=== PATIENT | male | born 1940 | race Caucasian/White ===

== ENCOUNTER 2017-07-26 06:20 | Day surgery (SDC) | payer MEDICARE ==
[2017-07-25 10:56] LABS: BASOPHILS % (AUTO) 0.7 % (0.0-5.0); EOSINOPHILS % (AUTO) 1.8 % (0.0-8.0); HEMATOCRIT 33.8 % (42-54); LYMPHOCYTES % (AUTO) 10.3 % (21.0-51.0); MEAN CORPUSCULAR HEMOGLOBIN 31.8 pg (27.0-33.0); MEAN CORPUSCULAR HGB CONC 34.2 g/dL (32.0-36.0); MONOCYTES % (AUTO) 5.9 % (3.0-13.0); NEUTROPHILS % (AUTO) 81.3 % (40.0-77.0); NUCLEATED RED BLOOD CELLS 0.2 % (0.0-0.19); PLATELET COUNT (AUTO) 218 K/uL (130-400); RED BLOOD CELL COUNT(AUTO) 3.63 MIL/uL (4.50-6.20); RED CELL DISTRIBUTION WIDTH 21.1 % (11.0-15.5); WHITE BLOOD COUNT (AUTO) 10.7 K/uL (4.8-10.8)
[2017-07-25 11:02] LABS: CREATININE 1.4 mg/dL (0.5-1.5); POTASSIUM 3.4 mmol/L (3.5-5.1)
[2017-07-25 11:18] VITALS: BP 134/61
[2017-07-25 11:30] LABS: INR 1.35 (0.85-1.15); PARTIAL THROMBOPLASTIN TIME 36.3 SEC (26.3-35.5); PROTHROMBIN TIME 14.1 SEC (9.6-11.6)
[~2017-07-26] VITALS: Ht 172.7 cm; Wt 129.1 kg
[~2017-07-26 06:20] MED LIST: ALBU18HF7 IH; ALBUTERAL NEB; CHOL100040 PO; DEXL60CA3 PO; DRON400T2 PO; FOLI0.4T2 PO; FURO40TA5 PO; GABA600T PO; IPRATROPIUM NASAL; LEVO75 PO; LISI2.5T2 PO; LORA10TA7 PO; METO-409 PO; MOME13HF IH; MONT10TA24 PO; PRESER VISION PO; PYRI100T2 PO; RIVA20TA PO; TRAM50TA4 PO; VITAMIN B12 PO; ZOCAR PO; [UNRECOGNIZED DRUG - CODE] PO
[2017-07-26 06:30] VITALS: BP 136/63
[2017-07-26] MEDS ORDERED: SODIUM CHLORIDE 0.9% 1000ML 1,000 ML IV ONE (06:55)
[2017-07-26] MEDS ORDERED: PROPOFOL 10 MG/ML 20ML VIAL IV ONE (07:43)
== END 2017-07-26 08:45 | disposition home or self-care (01) ==
LOC: DAH 06:20
PROVIDERS: ATTEND Internal Medicine Cardiovascular Disease
DX: I48.91 Unspecified atrial fibrillation (principal); Z53.8 Procedure and treatment not carried out for other reasons
CPT/HCPCS: 36415; 80048; 85025; 85610; 85730; 93005 ×2; A4606; J2704; J7030

== ENCOUNTER → 2017-08-07 | Outpatient (CLI) | payer MEDICARE ==
[~2017-08-07] MED LIST changes: +IPRA4AER IH; +KETO15CR2 TP; +OLOP2.5D5 OP; +SACU1TAB PO; +SIMV20TA6 PO; +[UNRECOGNIZED DRUG - OTHER] PO
== END | disposition home or self-care (01) ==
LOC: SHCH 12:25
PROVIDERS: ATTEND Internal Medicine Cardiovascular Disease
DX: R60.0 Localized edema (principal)
CPT/HCPCS: 93970

== ENCOUNTER 2017-08-09 12:22 | Inpatient (IN) | payer MEDICARE ==
[~2017-08-09] VITALS: Ht 172.7 cm; Wt 80.8 kg
[~2017-08-09 12:22] MED LIST changes: -IPRA4AER IH; -KETO15CR2 TP; -OLOP2.5D5 OP; -SACU1TAB PO; -SIMV20TA6 PO; -[UNRECOGNIZED DRUG - OTHER] PO
[2017-08-09 13:07] LABS: BASOPHILS % (AUTO) 0.9 % (0.0-5.0); EOSINOPHILS % (AUTO) 2.1 % (0.0-8.0); HEMATOCRIT 23.1 % (42-54); LYMPHOCYTES % (AUTO) 11.9 % (21.0-51.0); MEAN CORPUSCULAR HEMOGLOBIN 31.8 pg (27.0-33.0); MEAN CORPUSCULAR HGB CONC 33.7 g/dL (32.0-36.0); MEAN CORPUSCULAR VOLUME 94.3 fL (79-99); MONOCYTES % (AUTO) 6.8 % (3.0-13.0); NEUTROPHILS % (AUTO) 78.3 % (40.0-77.0); NUCLEATED RED BLOOD CELLS 0.3 % (0.0-0.19); PLATELET COUNT (AUTO) 219 K/uL (130-400); RED BLOOD CELL COUNT(AUTO) 2.45 MIL/uL (4.50-6.20); RED CELL DISTRIBUTION WIDTH 20.7 % (11.0-15.5); WHITE BLOOD COUNT (AUTO) 10.7 K/uL (4.8-10.8)
[2017-08-09 13:42] LABS: CREATININE 1.4 mg/dL (0.5-1.5); INR 1.29 (0.85-1.15); PARTIAL THROMBOPLASTIN TIME 31.7 SEC (26.3-35.5); POTASSIUM 3.5 mmol/L (3.5-5.1); PROTHROMBIN TIME 13.5 SEC (9.6-11.6)
[2017-08-09 13:47] LABS: ALBUMIN 3.2 g/dL (3.5-5.0); BILIRUBIN,TOTAL 0.8 mg/dL (0.2-1.0); TOTAL PROTEIN, SERUM 6.3 g/dL (6.0-8.3)
[2017-08-09] MEDS ORDERED: SODIUM CHLORIDE 0.9% 100 ML IV ONE (15:57)
[2017-08-09] MEDS ORDERED: SODIUM CHLORIDE 0.9% 250 ML IV ONE (16:48)
[2017-08-09] MEDS ORDERED: FUROSEMIDE 10 MG/ML 2ML VIAL ONE (19:58)
[2017-08-09 20:14] LABS: HEMATOCRIT 24.6 % (42-54)
[2017-08-09 20:50] VITALS: BP 151/79
[2017-08-09] MEDS: METOPROLOL TARTRATE 25 MG TAB PO SCH (23:00)
[2017-08-09] MEDS ORDERED: POTASSIUM CHLORIDE 10% ELIXIR 20 MEQ/15 ML UDCUP PO PRN (23:15)
[2017-08-09] MEDS ORDERED: POTASSIUM CHLORIDE 20MEQ/100ML 100 ML IV PRN (23:15)
[2017-08-09] MEDS ORDERED: ACETAMINOPHEN 325 MG TAB PO PRN ×2 (23:15)
[2017-08-09] MEDS ORDERED: LIDOCAINE HCL-MPF 1% 2ML VIAL IVP PRN (23:15)
[2017-08-09] MEDS ORDERED: ONDANSETRON HCL 4 MG/2 ML VIAL IV PRN (23:15)
[2017-08-09] MEDS ORDERED: HYDRALAZINE HCL 20 MG/ML VIAL IV PRN (23:15)
[2017-08-09] MEDS ORDERED: LISINOPRIL 2.5 MG TABLET ONE (23:29)
[2017-08-09] MEDS: LISINOPRIL 5 MG TABLET PO SCH (23:30)
[2017-08-09] MEDS ORDERED: METOPROLOL TARTRATE 25 MG TAB ONE (23:32)
[2017-08-09 23:51] VITALS: BP 133/69
[2017-08-10] MEDS ORDERED: SODIUM CHLORIDE 0.9% 100 ML IV ONE (03:05)
[2017-08-10] MEDS: PANTOPRAZOLE SODIUM 80 MG in SODIUM CHLORIDE 0.9% 100 ML IV SCH ×2 (03:48→15:44)
[2017-08-10 03:54] LABS: HEMATOCRIT 22.8 % (42-54); MEAN CORPUSCULAR HEMOGLOBIN 32.2 pg (27.0-33.0); MEAN CORPUSCULAR HGB CONC 34.7 g/dL (32.0-36.0); MEAN CORPUSCULAR VOLUME 92.7 fL (79-99); NUCLEATED RED BLOOD CELLS 0.2 % (0.0-0.19); PLATELET COUNT (AUTO) 183 K/uL (130-400); RED BLOOD CELL COUNT(AUTO) 2.46 MIL/uL (4.50-6.20); RED CELL DISTRIBUTION WIDTH 20.1 % (11.0-15.5); WHITE BLOOD COUNT (AUTO) 7.8 K/uL (4.8-10.8)
[2017-08-10 04:02] LABS: CREATININE 1.1 mg/dL (0.5-1.5); POTASSIUM 3.1 mmol/L (3.5-5.1)
[2017-08-10 04:52] VITALS: BP 119/55
[2017-08-10 07:27] LABS: APPEARANCE,URINE CLEAR (CLEAR); BILIRUBIN,URINE NEGATIVE (NEGATIVE); COLOR,URINE YELLOW (YELLOW); GLUCOSE, URINE (UA) NEGATIVE (NEGATIVE); KETONES,URINE NEGATIVE (NEGATIVE); LEUKOCYTE ESTERASE ,URINE NEGATIVE (NEGATIVE); NITRATE,URINE NEGATIVE (NEGATIVE); OCCULT BLOOD,URINE NEGATIVE (NEGATIVE); PROTEIN,URINE NEGATIVE (NEGATIVE); UROBILINOGEN,URINE 0.2 mg/dL (0.2-1.0)
[2017-08-10 08:14] VITALS: BP 138/76
[2017-08-10] MEDS ORDERED: SIMV20TA6 PO (08:36)
[2017-08-10] MEDS ORDERED: OLOP2.5D5 OP (08:36)
[2017-08-10] MEDS ORDERED: IPRA4AER IH (08:36)
[2017-08-10] MEDS ORDERED: KETO15CR2 TP (08:36)
[2017-08-10] MEDS ORDERED: PANTOPRAZOLE 40 MG/VIAL IVP SCH (09:00)
[2017-08-10] MEDS ORDERED: TRAMADOL HCL 50 MG TABLET PO SCH (10:00)
[2017-08-10] MEDS ORDERED: MAGNESIUM 2GM PREMIX 50ML 50 ML IV SCH (10:00)
[2017-08-10] MEDS: DRONEDARONE HYDROCHLORIDE 400 MG TABLET PO SCH ×3 (10:55→20:41)
[2017-08-10] MEDS: POTASSIUM CHLORIDE 20 MEQ ERTAB PO PRN ×3 (10:56→17:47)
[2017-08-10] MEDS: LISINOPRIL 5 MG TABLET PO SCH (10:58)
[2017-08-10] MEDS: METOPROLOL TARTRATE 25 MG TAB PO SCH (10:59)
[2017-08-10 12:00] VITALS: BP 146/64
[2017-08-10] MEDS: GABAPENTIN 300 MG CAPSULE PO SCH ×2 (14:23→20:41)
[2017-08-10 16:00] VITALS: BP 107/56
[2017-08-10] MEDS ORDERED: FUROSEMIDE 10 MG/ML 2ML VIAL IV SCH (17:15)
[2017-08-10] MEDS: PYRIDOXINE HCL 50 MG TABLET PO SCH (17:46)
[2017-08-10] MEDS ORDERED: **HM** TOPROL XL 100MG PO SCH (18:00)
[2017-08-10 19:44] VITALS: BP 100/46
[2017-08-10] MEDS: FUROSEMIDE 80 MG TABLET PO SCH (20:41)
[2017-08-10] MEDS: METOPROLOL TARTRATE 50 MG TAB PO SCH (20:41)
[2017-08-10] MEDS: FOLIC ACID 1 MG TABLET PO SCH (20:41)
[2017-08-10] MEDS: ATORVASTATIN CALCIUM 10 MG TABLET PO SCH (20:41)
[2017-08-10] MEDS: MONTELUKAST SODIUM 10 MG TAB PO SCH (20:41)
[2017-08-10] MEDS: DULERA IH SCH (20:46)
[2017-08-10] MEDS ORDERED: LISINOPRIL 2.5 MG TABLET PO SCH (21:00)
[2017-08-10] MEDS ORDERED: DRONEDARONE HYDROCHLORIDE 400 MG TABLET PO SCH (21:00)
[2017-08-11] VITALS (22 sets, daily range): BP systolic 91–140; BP diastolic 48–86
[2017-08-11] MEDS ORDERED: SODIUM CHLORIDE 0.9% 100 ML IV ONE (02:41)
[2017-08-11] MEDS: PANTOPRAZOLE SODIUM 80 MG in SODIUM CHLORIDE 0.9% 100 ML IV SCH (02:54)
[2017-08-11 05:04] LABS: HEMATOCRIT 25.9 % (42-54); MEAN CORPUSCULAR HEMOGLOBIN 31.3 pg (27.0-33.0); NUCLEATED RED BLOOD CELLS 0.2 % (0.0-0.19); PLATELET COUNT (AUTO) 206 K/uL (130-400); RED BLOOD CELL COUNT(AUTO) 2.82 MIL/uL (4.50-6.20); RED CELL DISTRIBUTION WIDTH 19.4 % (11.0-15.5); WHITE BLOOD COUNT (AUTO) 7.2 K/uL (4.8-10.8)
[2017-08-11 05:24] LABS: CREATININE 1.2 mg/dL (0.5-1.5); POTASSIUM 3.3 mmol/L (3.5-5.1)
[2017-08-11] MEDS ORDERED: IPRATROPIUM/ALBUTEROL SULFATE 3 ML SOLUTION IH ONE (06:08)
[2017-08-11] MEDS: LEVOTHYROXINE 75 MCG TABLET PO SCH (07:30)
[2017-08-11] MEDS ORDERED: PROPOFOL 10 MG/ML 20ML VIAL IV ONE (08:06)
[2017-08-11] MEDS: DULERA IH SCH ×2 (09:00→20:52)
[2017-08-11] MEDS: PAZEO OP SCH (09:00)
[2017-08-11] MEDS: **HM** VIT D3 1000 UNITS PO SCH (09:00)
[2017-08-11] MEDS: GABAPENTIN 300 MG CAPSULE PO SCH ×3 (10:12→20:43)
[2017-08-11] MEDS: DRONEDARONE HYDROCHLORIDE 400 MG TABLET PO SCH ×2 (10:13→20:43)
[2017-08-11] MEDS: FUROSEMIDE 80 MG TABLET PO SCH ×2 (10:13→20:44)
[2017-08-11] MEDS: ALLOPURINOL 300 MG TABLET PO SCH (10:13)
[2017-08-11] MEDS: METOPROLOL TARTRATE 50 MG TAB PO SCH ×2 (10:13→20:44)
[2017-08-11] MEDS: LORATADINE 10 MG TABLET PO SCH (10:13)
[2017-08-11] MEDS: LISINOPRIL 2.5 MG TABLET PO SCH (10:14)
[2017-08-11] MEDS: POTASSIUM CHLORIDE 20 MEQ ERTAB PO PRN ×2 (14:58→18:11)
[2017-08-11] MEDS: PANTOPRAZOLE SODIUM 40 MG TABLET.DR PO SCH (14:59)
[2017-08-11] MEDS ORDERED: PEG 3350/NA SULF,BICARB,CL/KCL 4000 ML SOLN PO SCH (17:00)
[2017-08-11] MEDS: PYRIDOXINE HCL 50 MG TABLET PO SCH (17:52)
[2017-08-11] MEDS: IPRATROPIUM 0.5 MG/2.5 ML INH IH PRN (19:03)
[2017-08-11] MEDS: MONTELUKAST SODIUM 10 MG TAB PO SCH (20:43)
[2017-08-11] MEDS: ATORVASTATIN CALCIUM 10 MG TABLET PO SCH (20:43)
[2017-08-11] MEDS: FOLIC ACID 1 MG TABLET PO SCH (20:44)
[2017-08-12] VITALS (19 sets, daily range): BP systolic 96–168; BP diastolic 46–77
[2017-08-12 06:03] LABS: HEMATOCRIT 26.3 % (42-54); MEAN CORPUSCULAR HEMOGLOBIN 32.7 pg (27.0-33.0); MEAN CORPUSCULAR HGB CONC 35.1 g/dL (32.0-36.0); MEAN CORPUSCULAR VOLUME 93.1 fL (79-99); NUCLEATED RED BLOOD CELLS 0.1 % (0.0-0.19); PLATELET COUNT (AUTO) 212 K/uL (130-400); RED BLOOD CELL COUNT(AUTO) 2.83 MIL/uL (4.50-6.20); RED CELL DISTRIBUTION WIDTH 19.4 % (11.0-15.5)
[2017-08-12 06:08] LABS: POTASSIUM 3.1 mmol/L (3.5-5.1)
[2017-08-12] MEDS: IPRATROPIUM/ALBUTEROL SULFATE 3 ML SOLUTION IH SCH (06:38)
[2017-08-12] MEDS: LEVOTHYROXINE 75 MCG TABLET PO SCH (07:30)
[2017-08-12 07:44] LABS: LYMPHOCYTES % (MANUAL) 10 % (22-44); MAN.DIFF COMMENT-IMPRESSION MANUAL DIFFERENTIAL; MONOCYTES % (MANUAL) 6 % (2-9); REACTIVE LYMPHOCYTES 4 % (0-0); SEGMENTED NEUTROPHILS % 80 % (40-70)
[2017-08-12 07:45] LABS: PLATELET MORPHOLOGY COMMENT ADEQUATE
[2017-08-12] MEDS: FUROSEMIDE 80 MG TABLET PO SCH ×2 (09:00→21:00)
[2017-08-12] MEDS: **HM** VIT D3 1000 UNITS PO SCH (09:00)
[2017-08-12] MEDS: DULERA IH SCH ×2 (09:00→21:00)
[2017-08-12] MEDS: PAZEO OP SCH (09:00)
[2017-08-12] MEDS: GABAPENTIN 300 MG CAPSULE PO SCH ×3 (09:00→22:52)
[2017-08-12] MEDS: DRONEDARONE HYDROCHLORIDE 400 MG TABLET PO SCH ×2 (09:00→22:52)
[2017-08-12] MEDS ORDERED: PROPOFOL 10 MG/ML 20ML VIAL IV ONE (09:12)
[2017-08-12] MEDS: METOPROLOL TARTRATE 50 MG TAB PO SCH ×2 (11:10→22:51)
[2017-08-12] MEDS: LORATADINE 10 MG TABLET PO SCH (13:19)
[2017-08-12] MEDS: PANTOPRAZOLE SODIUM 40 MG TABLET.DR PO SCH (13:19)
[2017-08-12] MEDS: LISINOPRIL 2.5 MG TABLET PO SCH (13:19)
[2017-08-12] MEDS: ALLOPURINOL 300 MG TABLET PO SCH (13:19)
[2017-08-12] MEDS: POTASSIUM CHLORIDE 20 MEQ ERTAB PO PRN ×2 (15:54→18:18)
[2017-08-12] MEDS: PYRIDOXINE HCL 50 MG TABLET PO SCH (16:38)
[2017-08-12] MEDS: IPRATROPIUM 0.5 MG/2.5 ML INH IH PRN (19:57)
[2017-08-12] MEDS: FOLIC ACID 1 MG TABLET PO SCH (22:52)
[2017-08-12] MEDS: MONTELUKAST SODIUM 10 MG TAB PO SCH (22:53)
[2017-08-12] MEDS: ATORVASTATIN CALCIUM 10 MG TABLET PO SCH (22:53)
[2017-08-13 04:00] VITALS: BP 115/66
[2017-08-13 05:32] LABS: HEMATOCRIT 26.4 % (42-54); MEAN CORPUSCULAR HEMOGLOBIN 30.9 pg (27.0-33.0); MEAN CORPUSCULAR HGB CONC 33.6 g/dL (32.0-36.0); NUCLEATED RED BLOOD CELLS 0.2 % (0.0-0.19); PLATELET COUNT (AUTO) 229 K/uL (130-400); RED BLOOD CELL COUNT(AUTO) 2.87 MIL/uL (4.50-6.20); WHITE BLOOD COUNT (AUTO) 6.9 K/uL (4.8-10.8)
[2017-08-13 05:39] LABS: POTASSIUM 3.6 mmol/L (3.5-5.1)
[2017-08-13] MEDS: LEVOTHYROXINE 75 MCG TABLET PO SCH (06:34)
[2017-08-13] MEDS: IPRATROPIUM/ALBUTEROL SULFATE 3 ML SOLUTION IH SCH (07:01)
[2017-08-13] MEDS: FUROSEMIDE 80 MG TABLET PO SCH ×2 (08:00→18:09)
[2017-08-13] MEDS: DRONEDARONE HYDROCHLORIDE 400 MG TABLET PO SCH ×2 (08:00→18:09)
[2017-08-13 08:17] VITALS: BP 120/58
[2017-08-13] MEDS: DULERA IH SCH (09:00)
[2017-08-13] MEDS: **HM** VIT D3 1000 UNITS PO SCH (09:00)
[2017-08-13] MEDS: PAZEO OP SCH (09:00)
[2017-08-13] MEDS ORDERED: GUAIFENESIN-DM 200/20 MG 10 ML PO PRN (09:30)
[2017-08-13] MEDS ORDERED: DIATR MEGLU/DIATRIZOATE SODIUM 30 ML BOTTLE ONE (10:31)
[2017-08-13 12:39] VITALS: BP 150/69
[2017-08-13] MEDS: METOPROLOL TARTRATE 50 MG TAB PO SCH (13:27)
[2017-08-13] MEDS: LORATADINE 10 MG TABLET PO SCH (13:28)
[2017-08-13] MEDS: PANTOPRAZOLE SODIUM 40 MG TABLET.DR PO SCH (13:28)
[2017-08-13] MEDS: LISINOPRIL 2.5 MG TABLET PO SCH (13:28)
[2017-08-13] MEDS: ALLOPURINOL 300 MG TABLET PO SCH (13:28)
[2017-08-13] MEDS: GABAPENTIN 300 MG CAPSULE PO SCH (13:29)
[2017-08-13 17:15] VITALS: BP 122/51
[2017-08-13] MEDS: PYRIDOXINE HCL 50 MG TABLET PO SCH (18:09)
== END 2017-08-13 18:58 | disposition home or self-care (01) | DRG 378 ==
LOC: EDH 12:22 → EDHIP 15:00 → 3CH 19:46
PROVIDERS: ADMIT Internal Medicine; ATTEND Internal Medicine
PROC: 30233N1 Transfusion of Nonautologous Red Blood Cells into Peripheral Vein, Percutaneous Approach (ICD-10-PCS; principal; 2017-08-09)
PROC: 0DJ08ZZ Inspection of Upper Intestinal Tract, Via Natural or Artificial Opening Endoscopic (ICD-10-PCS; 2017-08-11)
PROC: 0DBK8ZZ Excision of Ascending Colon, Via Natural or Artificial Opening Endoscopic (ICD-10-PCS; 2017-08-12)
PROC: 0DBN8ZZ Excision of Sigmoid Colon, Via Natural or Artificial Opening Endoscopic (ICD-10-PCS; 2017-08-12)
PROC: 0DBP8ZZ Excision of Rectum, Via Natural or Artificial Opening Endoscopic (ICD-10-PCS; 2017-08-12)
DX: K92.1 Melena (principal); D62 Acute posthemorrhagic anemia; D68.59 Other primary thrombophilia; E11.42 Type 2 diabetes mellitus with diabetic polyneuropathy; I50.42 Chronic combined systolic (congestive) and diastolic (congestive) heart failure; I11.0 Hypertensive heart disease with heart failure; I42.9 Cardiomyopathy, unspecified; I48.1 Persistent atrial fibrillation; I48.0 Paroxysmal atrial fibrillation; Z79.01 Long term (current) use of anticoagulants; G47.33 Obstructive sleep apnea (adult) (pediatric); Z95.810 Presence of automatic (implantable) cardiac defibrillator; M10.9 Gout, unspecified; E05.90 Thyrotoxicosis, unspecified without thyrotoxic crisis or storm; E78.5 Hyperlipidemia, unspecified; G89.29 Other chronic pain; I25.10 Atherosclerotic heart disease of native coronary artery without angina pectoris; I44.7 Left bundle-branch block, unspecified; Z96.653 Presence of artificial knee joint, bilateral; Z85.46 Personal history of malignant neoplasm of prostate; Z90.79 Acquired absence of other genital organ(s); Z88.8 Allergy status to other drugs, medicaments and biological substances; Z82.49 Family history of ischemic heart disease and other diseases of the circulatory system
CPT/HCPCS: 36415; 36430; 71046; 74250; 80048; 80053; 81003; 82150; 82270; 83690; 83735; 83880; 85014; 85018; 85025; 85027; 85610; 85730; 86850; 86900; 86901; 86922; 88305; 93005; 93970; 94640; 94664; 99291; C9113; J1940; J2704; J3475; J3480; J7030; P9016; Q9963

== ENCOUNTER → 2017-09-05 | Outpatient (CLI) | payer MEDICARE ==
[~2017-09-05] MED LIST changes: -ALBUTERAL NEB; +IPRA4AER IH; -IPRATROPIUM NASAL; +KETO15CR2 TP; +OLOP2.5D5 OP; -RIVA20TA PO; +SACU1TAB PO; +SIMV20TA6 PO; -ZOCAR PO; +[UNRECOGNIZED DRUG - OTHER] PO
== END | disposition home or self-care (01) ==
LOC: SHCH 15:00
PROVIDERS: ATTEND Internal Medicine Cardiovascular Disease
DX: I35.8 Other nonrheumatic aortic valve disorders (principal); I13.0 Hypertensive heart and chronic kidney disease with heart failure and stage 1 through stage 4 chronic kidney disease, or unspecified chronic kidney disease; E11.22 Type 2 diabetes mellitus with diabetic chronic kidney disease; N18.9 Chronic kidney disease, unspecified; I50.9 Heart failure, unspecified; E03.9 Hypothyroidism, unspecified; E78.5 Hyperlipidemia, unspecified; I25.10 Atherosclerotic heart disease of native coronary artery without angina pectoris; I48.91 Unspecified atrial fibrillation; Z79.01 Long term (current) use of anticoagulants; Z98.890 Other specified postprocedural states
CPT/HCPCS: 93306

== ENCOUNTER 2017-10-14 10:29 | Inpatient (IN) | payer MEDICARE ==
[~2017-10-14] VITALS: Ht 172.7 cm; Wt 131.5 kg
[~2017-10-14 10:29] MED LIST changes: -SACU1TAB PO; -[UNRECOGNIZED DRUG - OTHER] PO
[2017-10-14 11:12] LABS: BASOPHILS % (AUTO) 0.4 % (0.0-5.0); EOSINOPHILS % (AUTO) 1.1 % (0.0-8.0); HEMATOCRIT 31.5 % (42-54); LYMPHOCYTES % (AUTO) 11.4 % (21.0-51.0); MEAN CORPUSCULAR HEMOGLOBIN 30.3 pg (27.0-33.0); MEAN CORPUSCULAR HGB CONC 33.7 g/dL (32.0-36.0); MEAN CORPUSCULAR VOLUME 89.8 fL (79-99); MONOCYTES % (AUTO) 7.2 % (3.0-13.0); NEUTROPHILS % (AUTO) 79.9 % (40.0-77.0); NUCLEATED RED BLOOD CELLS 0.1 % (0.0-0.19); PLATELET COUNT (AUTO) 164 K/uL (130-400); RED CELL DISTRIBUTION WIDTH 20.7 % (11.0-15.5); WHITE BLOOD COUNT (AUTO) 9.3 K/uL (4.8-10.8)
[2017-10-14 11:17] LABS: ABG BASE EXCESS -3.9 mmol/L (-2.0-3.0); ABG HCO3 19.8 mmol/L (21.0-28.0); ABG OXYGEN SATURATION 97.9 % (95.0-99.0); ABG PCO2 33 mmHg (35-48)
[2017-10-14] MEDS ORDERED: ASPIRIN 325 MG TABLET ONE (11:25)
[2017-10-14 11:26] LABS: ALBUMIN 3.3 g/dL (3.5-5.0); BILIRUBIN,TOTAL 0.5 mg/dL (0.2-1.0); CREATININE 5.3 mg/dL (0.5-1.5); TOTAL PROTEIN, SERUM 5.7 g/dL (6.0-8.3)
[2017-10-14 11:33] LABS: INR 1.09 (0.85-1.15); PARTIAL THROMBOPLASTIN TIME 27.8 SEC (26.3-35.5); PROTHROMBIN TIME 11.4 SEC (9.6-11.6)
[2017-10-14 12:26] LABS: B-TYPE NATRIURETIC PEPTIDE 1450 pg/mL (0-100)
[2017-10-14 14:22] VITALS: BP 109/65
[2017-10-14] MEDS ORDERED: ONDANSETRON HCL 4 MG/2 ML VIAL IVP PRN (14:30)
[2017-10-14] MEDS ORDERED: ACETAMINOPHEN 325 MG TAB PO PRN (14:30)
[2017-10-14] MEDS ORDERED: CLONIDINE HCL 0.1 MG TABLET PO PRN (14:30)
[2017-10-14] MEDS ORDERED: LACTULOSE 20 GM/30 ML UDCUP PO PRN (14:30)
[2017-10-14] MEDS ORDERED: [UNRECOGNIZED DRUG - OTHER] PO (14:49)
[2017-10-14] MEDS ORDERED: SACU1TAB PO (14:49)
[2017-10-14 16:00] VITALS: BP 106/57
[2017-10-14 19:28] VITALS: BP 118/65
[2017-10-14] MEDS: IPRATROPIUM/ALBUTEROL SULFATE 3 ML SOLUTION IH SCH ×2 (20:35→22:46)
[2017-10-14 21:25] LABS: CREATININE 5.6 mg/dL (0.5-1.5); POTASSIUM 5.2 mmol/L (3.5-5.1)
[2017-10-14] MEDS: FUROSEMIDE 10 MG/ML 4ML VIAL IV SCH (23:34)
[2017-10-14 23:54] VITALS: BP 108/54
[2017-10-15] VITALS (7 sets, daily range): BP systolic 88–111; BP diastolic 33–96
[2017-10-15] MEDS: IPRATROPIUM/ALBUTEROL SULFATE 3 ML SOLUTION IH SCH ×4 (02:42→18:13)
[2017-10-15 03:53] LABS: HEMATOCRIT 29.8 % (42-54); MEAN CORPUSCULAR HEMOGLOBIN 31.1 pg (27.0-33.0); MEAN CORPUSCULAR HGB CONC 34.1 g/dL (32.0-36.0); MEAN CORPUSCULAR VOLUME 91.1 fL (79-99); PLATELET COUNT (AUTO) 147 K/uL (130-400); RED BLOOD CELL COUNT(AUTO) 3.27 MIL/uL (4.50-6.20); RED CELL DISTRIBUTION WIDTH 20.2 % (11.0-15.5); WHITE BLOOD COUNT (AUTO) 9.3 K/uL (4.8-10.8)
[2017-10-15 04:24] LABS: CREATININE 5.6 mg/dL (0.5-1.5); POTASSIUM 4.7 mmol/L (3.5-5.1); THYROID STIMULATING HORMONE 1.26 uIU/mL (0.36-3.74)
[2017-10-15] MEDS: FUROSEMIDE 10 MG/ML 4ML VIAL IV SCH ×3 (06:08→22:45)
[2017-10-15] MEDS ORDERED: TRAMADOL HCL 50 MG TABLET PO SCH (09:45)
[2017-10-15] MEDS ORDERED: IPRATROPIUM/ALBUTEROL SULFATE 3 ML SOLUTION IH PRN (09:45)
[2017-10-15 11:04] LABS: APPEARANCE,URINE Clear (CLEAR); BILIRUBIN,URINE Negative (NEGATIVE); COLOR,URINE Yellow (YELLOW); GLUCOSE, URINE (UA) Negative (NEGATIVE); KETONES,URINE Negative (NEGATIVE); LEUKOCYTE ESTERASE ,URINE Negative (NEGATIVE); NITRATE,URINE Negative (NEGATIVE); OCCULT BLOOD,URINE Negative (NEGATIVE); PROTEIN,URINE Trace (NEGATIVE); UROBILINOGEN,URINE 0.2 mg/dL (0.2-1.0)
[2017-10-15 11:12] LABS: CREATININE,URINE RANDOM 110 mg/dL (30-135); SODIUM,URINE RANDOM 21 mmol/l (40-220)
[2017-10-15 11:54] LABS: BACTERIA,URINE Rare /HPF (None Seen); RBC,URINE 0-1 /HPF (0-1); WBC,URINE 0-1 /HPF (0-1)
[2017-10-15] MEDS ORDERED: LEVOTHYROXINE 75 MCG TABLET PO ONE (12:00)
[2017-10-15] MEDS ORDERED: METOPROLOL TARTRATE 25 MG TAB PO ONE (12:00)
[2017-10-15] MEDS ORDERED: PANTOPRAZOLE SODIUM 40 MG TABLET.DR PO ONE (12:00)
[2017-10-15] MEDS ORDERED: DRONEDARONE HYDROCHLORIDE 400 MG TABLET PO ONE (12:00)
[2017-10-15] MEDS: GABAPENTIN 300 MG CAPSULE PO SCH ×2 (14:55→20:40)
[2017-10-15] MEDS: PYRIDOXINE HCL 50 MG TABLET PO SCH (17:00)
[2017-10-15] MEDS ORDERED: METOPROLOL TARTRATE 50 MG TAB PO SCH (18:00)
[2017-10-15] MEDS: BUDESONIDE 0.5 MG/2 ML INH IH SCH (18:26)
[2017-10-15] MEDS: FOLIC ACID 1 MG TABLET PO SCH (20:39)
[2017-10-15] MEDS: CYANOCOBALAMIN (VITAMIN B-12) 1,000 MCG TABLET PO SCH (20:40)
[2017-10-15] MEDS: MONTELUKAST SODIUM 10 MG TAB PO SCH (20:40)
[2017-10-15] MEDS: ATORVASTATIN CALCIUM 10 MG TABLET PO SCH (20:40)
[2017-10-15] MEDS: METOPROLOL TARTRATE 25 MG TAB PO SCH (21:00)
[2017-10-15] MEDS: SACUBITRIL PO SCH (21:00)
[2017-10-15] MEDS: VALSARTAN PO SCH (21:00)
[2017-10-15] MEDS: DRONEDARONE HYDROCHLORIDE 400 MG TABLET PO SCH (21:00)
[2017-10-15] MEDS: [UNRECOGNIZED DRUG - OTHER] PO SCH (21:00)
[2017-10-16] MEDS: IPRATROPIUM/ALBUTEROL SULFATE 3 ML SOLUTION IH SCH ×5 (00:21→23:11)
[2017-10-16 03:55] VITALS: BP 122/60
[2017-10-16 04:00] LABS: CREATININE 5.2 mg/dL (0.5-1.5); POTASSIUM 4.6 mmol/L (3.5-5.1)
[2017-10-16] MEDS: LEVOTHYROXINE 75 MCG TABLET PO SCH (05:45)
[2017-10-16] MEDS: FUROSEMIDE 10 MG/ML 4ML VIAL IV SCH ×3 (05:46→20:46)
[2017-10-16] MEDS: BUDESONIDE 0.5 MG/2 ML INH IH SCH ×2 (06:23→18:36)
[2017-10-16] MEDS ORDERED: LEVOTHYROXINE 75 MCG TABLET PO SCH (07:30)
[2017-10-16 07:57] VITALS: BP 150/66
[2017-10-16] MEDS: VALSARTAN PO SCH (08:41)
[2017-10-16] MEDS: SACUBITRIL PO SCH (08:41)
[2017-10-16] MEDS: GABAPENTIN 300 MG CAPSULE PO SCH ×3 (08:43→20:44)
[2017-10-16] MEDS: PANTOPRAZOLE SODIUM 40 MG TABLET.DR PO SCH (08:43)
[2017-10-16] MEDS: ALLOPURINOL 100 MG TABLET PO SCH (08:43)
[2017-10-16] MEDS: LORATADINE 10 MG TABLET PO SCH (08:43)
[2017-10-16] MEDS: METOPROLOL TARTRATE 25 MG TAB PO SCH ×2 (08:43→20:44)
[2017-10-16] MEDS: DRONEDARONE HYDROCHLORIDE 400 MG TABLET PO SCH ×2 (08:45→20:44)
[2017-10-16] MEDS: DEXLANSOPRAZOLE 60 MG PO SCH (08:45)
[2017-10-16] MEDS: CHOLECALCIFEROL 1000 UNIT PO SCH (09:00)
[2017-10-16] MEDS: OLOPATADINE HCL OP SCH (09:00)
[2017-10-16] MEDS: [UNRECOGNIZED DRUG - OTHER] PO SCH ×2 (09:00→20:52)
[2017-10-16 11:30] VITALS: BP 127/53
[2017-10-16] MEDS: PYRIDOXINE HCL 50 MG TABLET PO SCH (16:08)
[2017-10-16 16:42] VITALS: BP 148/50
[2017-10-16 19:00] VITALS: BP 127/54
[2017-10-16] MEDS: CYANOCOBALAMIN (VITAMIN B-12) 1,000 MCG TABLET PO SCH (20:44)
[2017-10-16] MEDS: FOLIC ACID 1 MG TABLET PO SCH (20:44)
[2017-10-16] MEDS: ATORVASTATIN CALCIUM 10 MG TABLET PO SCH (20:44)
[2017-10-16] MEDS: MONTELUKAST SODIUM 10 MG TAB PO SCH (20:44)
[2017-10-16 23:00] VITALS: BP 120/60
[2017-10-17 03:43] VITALS: BP 127/67
[2017-10-17 03:52] LABS: HEMATOCRIT 30.3 % (42-54); MEAN CORPUSCULAR HEMOGLOBIN 30.5 pg (27.0-33.0); MEAN CORPUSCULAR HGB CONC 33.7 g/dL (32.0-36.0); MEAN CORPUSCULAR VOLUME 90.3 fL (79-99); PLATELET COUNT (AUTO) 159 K/uL (130-400); RED BLOOD CELL COUNT(AUTO) 3.35 MIL/uL (4.50-6.20); RED CELL DISTRIBUTION WIDTH 20.6 % (11.0-15.5); WHITE BLOOD COUNT (AUTO) 7.3 K/uL (4.8-10.8)
[2017-10-17 04:18] LABS: CREATININE 4.3 mg/dL (0.5-1.5); POTASSIUM 4.3 mmol/L (3.5-5.1)
[2017-10-17] MEDS: LEVOTHYROXINE 75 MCG TABLET PO SCH (05:55)
[2017-10-17] MEDS: FUROSEMIDE 10 MG/ML 4ML VIAL IV SCH (05:58)
[2017-10-17] MEDS: IPRATROPIUM/ALBUTEROL SULFATE 3 ML SOLUTION IH SCH ×2 (06:21→11:02)
[2017-10-17] MEDS: BUDESONIDE 0.5 MG/2 ML INH IH SCH (06:21)
[2017-10-17] MEDS: LORATADINE 10 MG TABLET PO SCH (07:33)
[2017-10-17] MEDS: DRONEDARONE HYDROCHLORIDE 400 MG TABLET PO SCH (07:33)
[2017-10-17] MEDS: ALLOPURINOL 100 MG TABLET PO SCH (07:33)
[2017-10-17] MEDS: PANTOPRAZOLE SODIUM 40 MG TABLET.DR PO SCH (07:34)
[2017-10-17] MEDS: GABAPENTIN 300 MG CAPSULE PO SCH (07:34)
[2017-10-17] MEDS: METOPROLOL TARTRATE 25 MG TAB PO SCH (07:34)
[2017-10-17] MEDS: [UNRECOGNIZED DRUG - OTHER] PO SCH (07:35)
[2017-10-17] MEDS: DEXLANSOPRAZOLE 60 MG PO SCH (07:36)
[2017-10-17] MEDS: OLOPATADINE HCL OP SCH (07:37)
[2017-10-17] MEDS: CHOLECALCIFEROL 1000 UNIT PO SCH (07:37)
[2017-10-17 07:38] VITALS: BP 149/75
[2017-10-17 11:30] VITALS: BP 131/56
== END 2017-10-17 12:40 | disposition home or self-care (01) | DRG 682 ==
LOC: EDH 10:29 → 2BH 13:15 → OBSVTOIN 13:15 → 2DH 10-16 00:34
PROVIDERS: ADMIT Family Medicine; ATTEND Family Medicine
PROC: 5A09357 Assistance with Respiratory Ventilation, Less than 24 Consecutive Hours, Continuous Positive Airway Pressure (ICD-10-PCS; principal; 2017-10-14)
PROC: 5A09357 Assistance with Respiratory Ventilation, Less than 24 Consecutive Hours, Continuous Positive Airway Pressure (ICD-10-PCS; 2017-10-16)
PROC: 5A09357 Assistance with Respiratory Ventilation, Less than 24 Consecutive Hours, Continuous Positive Airway Pressure (ICD-10-PCS; 2017-10-17)
DX: N17.9 Acute kidney failure, unspecified (principal); I50.33 Acute on chronic diastolic (congestive) heart failure; I95.89 Other hypotension; E66.01 Morbid (severe) obesity due to excess calories; I42.0 Dilated cardiomyopathy; I48.0 Paroxysmal atrial fibrillation; I13.0 Hypertensive heart and chronic kidney disease with heart failure and stage 1 through stage 4 chronic kidney disease, or unspecified chronic kidney disease; Z68.41 Body mass index [BMI] 40.0-44.9, adult; J98.11 Atelectasis; N12 Tubulo-interstitial nephritis, not specified as acute or chronic; D64.9 Anemia, unspecified; M10.9 Gout, unspecified; E78.00 Pure hypercholesterolemia, unspecified; E78.5 Hyperlipidemia, unspecified; G47.33 Obstructive sleep apnea (adult) (pediatric); I25.10 Atherosclerotic heart disease of native coronary artery without angina pectoris; I48.2 Chronic atrial fibrillation; M47.9 Spondylosis, unspecified; N18.9 Chronic kidney disease, unspecified; R63.3 Feeding difficulties; G89.29 Other chronic pain; Z79.01 Long term (current) use of anticoagulants; Z95.810 Presence of automatic (implantable) cardiac defibrillator; Z85.46 Personal history of malignant neoplasm of prostate; Z90.79 Acquired absence of other genital organ(s); Z88.8 Allergy status to other drugs, medicaments and biological substances; Z82.49 Family history of ischemic heart disease and other diseases of the circulatory system
CPT/HCPCS: 36415; 36600; 71045; 71250; 76770; 80048; 80053; 81001; 82533; 82550; 82570; 82803; 83880; 83935; 84300; 84443; 84484; 85025; 85027; 85610; 85730; 86850; 86900; 86901; 93005; 94640; 94660; 94664; A4344; J1940

== ENCOUNTER 2017-11-05 09:54 | Emergency (ER) | payer MEDICARE ==
[~2017-11-05 09:54] MED LIST changes: -KETO15CR2 TP; -LISI2.5T2 PO; +[UNRECOGNIZED DRUG - OTHER] PO
[2017-11-05 10:36] LABS: BASOPHILS % (AUTO) 0.9 % (0.0-5.0); EOSINOPHILS % (AUTO) 0.7 % (0.0-8.0); HEMATOCRIT 35.2 % (42-54); LYMPHOCYTES % (AUTO) 8.5 % (21.0-51.0); MEAN CORPUSCULAR HGB CONC 33.4 g/dL (32.0-36.0); MEAN CORPUSCULAR VOLUME 89.6 fL (79-99); MONOCYTES % (AUTO) 6.8 % (3.0-13.0); NEUTROPHILS % (AUTO) 83.1 % (40.0-77.0); NUCLEATED RED BLOOD CELLS 0.1 % (0.0-0.19); PLATELET COUNT (AUTO) 197 K/uL (130-400); RED BLOOD CELL COUNT(AUTO) 3.93 MIL/uL (4.50-6.20); RED CELL DISTRIBUTION WIDTH 19.4 % (11.0-15.5); WHITE BLOOD COUNT (AUTO) 12.8 K/uL (4.8-10.8)
[2017-11-05 10:46] LABS: CREATININE 1.8 mg/dL (0.5-1.5); POTASSIUM 4.7 mmol/L (3.5-5.1)
[2017-11-05 11:08] LABS: B-TYPE NATRIURETIC PEPTIDE 964 pg/mL (0-100)
[2017-11-05 11:09] LABS: ALBUMIN 3.3 g/dL (3.5-5.0); BILIRUBIN,TOTAL 0.6 mg/dL (0.2-1.0); CREATINE KINASE MB 1.1 ng/mL (0.5-3.6); TOTAL PROTEIN, SERUM 6.3 g/dL (6.0-8.3)
[2017-11-05] MEDS ORDERED: FUROSEMIDE 10 MG/ML 4ML VIAL ONE (11:34)
== END 2017-11-05 14:18 | disposition home or self-care (01) ==
LOC: EDH 09:54
DX: I11.0 Hypertensive heart disease with heart failure (principal); I50.9 Heart failure, unspecified; E78.5 Hyperlipidemia, unspecified; I25.10 Atherosclerotic heart disease of native coronary artery without angina pectoris; Z95.810 Presence of automatic (implantable) cardiac defibrillator; Z88.1 Allergy status to other antibiotic agents; Z88.8 Allergy status to other drugs, medicaments and biological substances; Z87.891 Personal history of nicotine dependence
CPT/HCPCS: 36415; 71045; 80053; 82550; 82553; 83880; 84484; 85025; 93005; 96374; 99285; J1940

== ENCOUNTER 2018-01-16 15:16 | Inpatient (IN) | payer MEDICARE ==
[~2018-01-16] VITALS: Ht 172.7 cm; Wt 112.7 kg
[2018-01-16 15:50] LABS: BASOPHILS % (AUTO) 0.7 % (0.0-5.0); EOSINOPHILS % (AUTO) 2.2 % (0.0-8.0); HEMATOCRIT 47.5 % (42-54); LYMPHOCYTES % (AUTO) 14.1 % (21.0-51.0); MEAN CORPUSCULAR HEMOGLOBIN 32.4 pg (27.0-33.0); MEAN CORPUSCULAR HGB CONC 34.5 g/dL (32.0-36.0); MEAN CORPUSCULAR VOLUME 93.9 fL (79-99); MONOCYTES % (AUTO) 9.2 % (3.0-13.0); NEUTROPHILS % (AUTO) 73.8 % (40.0-77.0); NUCLEATED RED BLOOD CELLS 0.1 % (0.0-0.19); PLATELET COUNT (AUTO) 232 K/uL (130-400); RED BLOOD CELL COUNT(AUTO) 5.06 MIL/uL (4.50-6.20); RED CELL DISTRIBUTION WIDTH 18.8 % (11.0-15.5); WHITE BLOOD COUNT (AUTO) 14.2 K/uL (4.8-10.8)
[2018-01-16 16:05] LABS: CREATININE 2.2 mg/dL (0.5-1.5); POTASSIUM 4.8 mmol/L (3.5-5.1); TOTAL PROTEIN, SERUM 7.7 g/dL (6.0-8.3)
[2018-01-16] MEDS ORDERED: ONDANSETRON HCL 4 MG/2 ML VIAL ONE (16:22)
[2018-01-16] MEDS ORDERED: SODIUM CHLORIDE 0.9% 500ML 500 ML IV ONE (16:22)
[2018-01-16 17:12] LABS: APPEARANCE,URINE Clear (CLEAR); BILIRUBIN,URINE Negative (NEGATIVE); COLOR,URINE Yellow (YELLOW); GLUCOSE, URINE (UA) Negative (NEGATIVE); KETONES,URINE Negative (NEGATIVE); LEUKOCYTE ESTERASE ,URINE Negative (NEGATIVE); NITRATE,URINE Negative (NEGATIVE); OCCULT BLOOD,URINE Negative (NEGATIVE); PH,URINE 5.5 (5.0-8.0); PROTEIN,URINE Negative (NEGATIVE)
[2018-01-16 21:50] VITALS: BP 138/72
[2018-01-16] MEDS ORDERED: SODIUM CHLORIDE 0.9% 1000ML 1,000 ML IV SCH (23:15)
[2018-01-16 23:35] VITALS: BP 117/70
[2018-01-17 03:08] VITALS: BP 123/69
[2018-01-17 05:02] LABS: HEMATOCRIT 44.8 % (42-54); MEAN CORPUSCULAR HEMOGLOBIN 32.1 pg (27.0-33.0); MEAN CORPUSCULAR HGB CONC 34.1 g/dL (32.0-36.0); MEAN CORPUSCULAR VOLUME 93.9 fL (79-99); PLATELET COUNT (AUTO) 175 K/uL (130-400); RED BLOOD CELL COUNT(AUTO) 4.77 MIL/uL (4.50-6.20); RED CELL DISTRIBUTION WIDTH 18.5 % (11.0-15.5); WHITE BLOOD COUNT (AUTO) 13.3 K/uL (4.8-10.8)
[2018-01-17] MEDS ORDERED: ACETAMINOPHEN 325 MG TAB PO PRN ×2 (07:00)
[2018-01-17] MEDS ORDERED: SODIUM CHLORIDE 0.9% 1000ML 1,000 ML IV SCH (07:00)
[2018-01-17] MEDS ORDERED: ONDANSETRON HCL 4 MG/2 ML VIAL IVP PRN (07:00)
[2018-01-17] MEDS ORDERED: ONDANSETRON HCL MDV 20ML 2 MG/ML VIAL IVP PRN (07:00)
[2018-01-17 08:00] VITALS: BP 122/70
[2018-01-17] MEDS: ENOXAPARIN SODIUM 40 MG/0.4 ML SYRINGE SQ SCH ×4 (09:00→17:38)
[2018-01-17] MEDS: FAMOTIDINE 20MG TAB 20 MG TAB PO SCH (09:18)
[2018-01-17 11:00] VITALS: BP 141/71
[2018-01-17 16:00] VITALS: BP 153/72
[2018-01-17 20:00] VITALS: BP 133/72
[2018-01-18 00:15] VITALS: BP 131/71
[2018-01-18 04:05] VITALS: BP 131/70
[2018-01-18 04:09] LABS: HEMATOCRIT 44.4 % (42-54); MEAN CORPUSCULAR HEMOGLOBIN 31.8 pg (27.0-33.0); MEAN CORPUSCULAR HGB CONC 33.9 g/dL (32.0-36.0); MEAN CORPUSCULAR VOLUME 93.8 fL (79-99); PLATELET COUNT (AUTO) 163 K/uL (130-400); RED BLOOD CELL COUNT(AUTO) 4.74 MIL/uL (4.50-6.20); RED CELL DISTRIBUTION WIDTH 18.7 % (11.0-15.5); WHITE BLOOD COUNT (AUTO) 10.2 K/uL (4.8-10.8)
[2018-01-18 04:16] LABS: CREATININE 1.5 mg/dL (0.5-1.5); PHOSPHORUS 3.7 mg/dL (2.5-4.9); POTASSIUM 3.6 mmol/L (3.5-5.1)
[2018-01-18 04:39] LABS: BAND NEUTROPHILS % (MANUAL) 3 % (0-2); BASOPHILS % (MANUAL) 1 % (0-2); EOSINOPHILS % (MANUAL) 3 % (1-6); LYMPHOCYTES % (MANUAL) 24 % (22-44); MONOCYTES % (MANUAL) 5 % (2-9); SEGMENTED NEUTROPHILS % 64 % (40-70)
[2018-01-18 04:40] LABS: MAN.DIFF COMMENT-IMPRESSION MANUAL DIFFERENTIAL
[2018-01-18] MEDS: FAMOTIDINE 20MG TAB 20 MG TAB PO SCH (09:01)
[2018-01-18] MEDS: ENOXAPARIN SODIUM 40 MG/0.4 ML SYRINGE SQ SCH (09:02)
[2018-01-18] MEDS ORDERED: POTASSIUM CHLORIDE 20 MEQ ERTAB PO SCH (10:30)
== END 2018-01-18 12:24 | disposition home or self-care (01) | DRG 683 ==
LOC: EDH 15:16 → OBSVTOIN 18:45 → EDHIP 18:45 → 3AH 21:28
PROVIDERS: ADMIT Hospitalist; ATTEND Hospitalist
DX: N17.9 Acute kidney failure, unspecified (principal); I13.0 Hypertensive heart and chronic kidney disease with heart failure and stage 1 through stage 4 chronic kidney disease, or unspecified chronic kidney disease; E87.1 Hypo-osmolality and hyponatremia; I42.0 Dilated cardiomyopathy; E78.00 Pure hypercholesterolemia, unspecified; E78.5 Hyperlipidemia, unspecified; E86.9 Volume depletion, unspecified; G47.33 Obstructive sleep apnea (adult) (pediatric); G89.29 Other chronic pain; I25.10 Atherosclerotic heart disease of native coronary artery without angina pectoris; I48.91 Unspecified atrial fibrillation; I50.9 Heart failure, unspecified; K57.30 Diverticulosis of large intestine without perforation or abscess without bleeding; K59.00 Constipation, unspecified; K80.20 Calculus of gallbladder without cholecystitis without obstruction; M10.9 Gout, unspecified; N18.9 Chronic kidney disease, unspecified; N28.1 Cyst of kidney, acquired; Z80.0 Family history of malignant neoplasm of digestive organs; Z80.8 Family history of malignant neoplasm of other organs or systems; Z82.49 Family history of ischemic heart disease and other diseases of the circulatory system; Z85.46 Personal history of malignant neoplasm of prostate; Z87.891 Personal history of nicotine dependence; Z91.81 History of falling; Z79.899 Other long term (current) drug therapy; Z88.8 Allergy status to other drugs, medicaments and biological substances
CPT/HCPCS: 36415; 74176; 76770; 80048; 80053; 81003; 83690; 84100; 84484; 85025; 85027; 93005; 99291; J1650; J2405; J7030; J7040

== ENCOUNTER 2018-07-26 23:13 | Inpatient (IN) | payer MEDICARE ==
[~2018-07-26] VITALS: Ht 172.7 cm; Wt 112.0 kg
[~2018-07-26 23:13] MED LIST changes: -DRON400T2 PO; -OLOP2.5D5 OP; +OLOP2.5D5 OU
[2018-07-26 23:43] LABS: BASOPHILS % (AUTO) 0.3 % (0.0-5.0); EOSINOPHILS % (AUTO) 0.4 % (0.0-8.0); LYMPHOCYTES % (AUTO) 5.5 % (21.0-51.0); MEAN CORPUSCULAR HEMOGLOBIN 36.3 pg (27.0-33.0); MEAN CORPUSCULAR HGB CONC 34.1 g/dL (32.0-36.0); MEAN CORPUSCULAR VOLUME 106.6 fL (79-99); MONOCYTES % (AUTO) 7.7 % (3.0-13.0); NEUTROPHILS % (AUTO) 86.1 % (40.0-77.0); NUCLEATED RED BLOOD CELLS 0.1 % (0.0-0.19); PLATELET COUNT (AUTO) 195 K/uL (130-400); RED BLOOD CELL COUNT(AUTO) 3.38 MIL/uL (4.50-6.20); RED CELL DISTRIBUTION WIDTH 16.2 % (11.0-15.5); WHITE BLOOD COUNT (AUTO) 16.9 K/uL (4.8-10.8)
[2018-07-26 23:55] LABS: INR 1.11 (0.85-1.15); PARTIAL THROMBOPLASTIN TIME 28.1 SEC (26.3-35.5); PROTHROMBIN TIME 11.6 SEC (9.6-11.6)
[2018-07-26 23:58] LABS: CREATININE 1.6 mg/dL (0.5-1.5); POTASSIUM 4.2 mmol/L (3.5-5.1)
[2018-07-27 00:03] LABS: ALBUMIN 3.4 g/dL (3.5-5.0); BILIRUBIN,TOTAL 0.7 mg/dL (0.2-1.0); TOTAL PROTEIN, SERUM 7.1 g/dL (6.0-8.3)
[2018-07-27] MEDS ORDERED: LEVOFLOXACIN 500 MG/D5W 100 ML 100 ML ONE (00:12)
[2018-07-27] MEDS ORDERED: CEFTRIAXONE SODIUM 1 GM ONE (00:12)
[2018-07-27] MEDS ORDERED: SODIUM CHLORIDE 0.9% 1000ML 1,000 ML IV SCH (00:25)
[2018-07-27] MEDS: CEFTRIAXONE SODIUM 1 GM IV SCH ×3 (00:30→23:51)
[2018-07-27] MEDS: LEVOFLOXACIN 500 MG/D5W 100 ML 100 ML IV SCH ×3 (00:30→23:51)
[2018-07-27 00:52] LABS: B-TYPE NATRIURETIC PEPTIDE 717 pg/mL (0-100)
[2018-07-27] MEDS: FUROSEMIDE 10 MG/ML 2ML VIAL IV SCH ×4 (01:45→23:52)
[2018-07-27] MEDS ORDERED: FUROSEMIDE 10 MG/ML 2ML VIAL ONE ×2 (01:53→11:38)
[2018-07-27] MEDS: IPRATROPIUM/ALBUTEROL SULFATE 3 ML SOLUTION IH SCH ×6 (02:39→21:22)
[2018-07-27 03:22] LABS: APPEARANCE,URINE Clear (CLEAR); BILIRUBIN,URINE Negative (NEGATIVE); COLOR,URINE Yellow (YELLOW); GLUCOSE, URINE (UA) Negative (NEGATIVE); KETONES,URINE Negative (NEGATIVE); LEUKOCYTE ESTERASE ,URINE Negative (NEGATIVE); NITRATE,URINE Negative (NEGATIVE); OCCULT BLOOD,URINE Negative (NEGATIVE); PROTEIN,URINE Negative (NEGATIVE)
[2018-07-27] MEDS ORDERED: SODIUM CHLORIDE 3% FOR INHALATION 4 ML/AMP VIAL.NEB IH ONE (03:24)
[2018-07-27 05:31] LABS: CREATININE 1.2 mg/dL (0.5-1.5); POTASSIUM 3.1 mmol/L (3.5-5.1)
[2018-07-27] MEDS: METHYLPREDNISOLONE SOD SUCC 125MG/2ML VIAL IV SCH ×5 (06:30→23:52)
[2018-07-27 07:12] LABS: BASOPHILS % (AUTO) 0.3 % (0.0-5.0); EOSINOPHILS % (AUTO) 0.4 % (0.0-8.0); HEMATOCRIT 37.3 % (42-54); LYMPHOCYTES % (AUTO) 7.8 % (21.0-51.0); MEAN CORPUSCULAR HEMOGLOBIN 35.9 pg (27.0-33.0); MEAN CORPUSCULAR HGB CONC 33.9 g/dL (32.0-36.0); MEAN CORPUSCULAR VOLUME 106.2 fL (79-99); MONOCYTES % (AUTO) 6.7 % (3.0-13.0); NEUTROPHILS % (AUTO) 84.8 % (40.0-77.0); NUCLEATED RED BLOOD CELLS 0.1 % (0.0-0.19); PLATELET COUNT (AUTO) 181 K/uL (130-400); RED BLOOD CELL COUNT(AUTO) 3.52 MIL/uL (4.50-6.20); RED CELL DISTRIBUTION WIDTH 16.4 % (11.0-15.5); WHITE BLOOD COUNT (AUTO) 16.5 K/uL (4.8-10.8)
[2018-07-27] MEDS: PANTOPRAZOLE SODIUM 40 MG TABLET.DR PO SCH (09:00)
[2018-07-27] MEDS: ENOXAPARIN SODIUM 40 MG/0.4 ML SYRINGE SQ SCH (09:00)
[2018-07-27] MEDS ORDERED: METHYLPREDNISOLONE SOD SUCC 125MG/2ML VIAL ONE ×2 (09:59→16:05)
[2018-07-27] MEDS ORDERED: ENOXAPARIN SODIUM 40 MG/0.4 ML SYRINGE SQ ONE (10:00)
[2018-07-27] MEDS ORDERED: IPRATROPIUM/ALBUTEROL SULFATE 3 ML SOLUTION IH ONE ×4 (10:17→21:14)
[2018-07-27] MEDS ORDERED: PANTOPRAZOLE SODIUM 40 MG TABLET.DR PO ONE (11:38)
[2018-07-27] MEDS ORDERED: POTASSIUM CHLORIDE 10% ELIXIR 20 MEQ/15 ML UDCUP PO PRN (12:00)
[2018-07-27] MEDS ORDERED: POTASSIUM CHLORIDE 20MEQ/100ML 100 ML IV PRN (12:00)
[2018-07-27] MEDS ORDERED: LIDOCAINE HCL-MPF 1% 2ML VIAL IVP PRN (12:00)
[2018-07-27] MEDS ORDERED: POTASSIUM CHLORIDE 20 MEQ ERTAB PO PRN (12:00)
[2018-07-27] MEDS ORDERED: POTASSIUM CHLORIDE 20 MEQ ERTAB PO ONE ×3 (12:29→16:04)
[2018-07-27] MEDS ORDERED: GUAIFENESIN-DM 200/20 MG 10 ML PO PRN (13:00)
[2018-07-27] MEDS ORDERED: GUAIFENESIN-DM 200/20 MG 10 ML ONE (17:17)
[2018-07-27] MEDS ORDERED: METHYLPREDNISOLONE SOD SUCC 40MG/ML 1ML ONE (22:55)
[2018-07-27 23:10] VITALS: BP 127/57
[2018-07-27] MEDS: METOPROLOL TARTRATE 50 MG TAB PO SCH (23:39)
[2018-07-27] MEDS: TRAMADOL HCL 50 MG TABLET PO SCH (23:40)
[2018-07-27] MEDS: SIMVASTATIN 20 MG TABLET PO SCH (23:40)
[2018-07-27] MEDS: GABAPENTIN 300 MG CAPSULE PO SCH (23:40)
[2018-07-28] MEDS ORDERED: AMIO200T5 PO (00:04)
[2018-07-28] MEDS ORDERED: SPIR25TA PO (00:04)
[2018-07-28] MEDS ORDERED: METO2.5T2 PO (00:04)
[2018-07-28] MEDS: IPRATROPIUM/ALBUTEROL SULFATE 3 ML SOLUTION IH SCH ×6 (02:27→21:39)
[2018-07-28 03:34] VITALS: BP 126/66
[2018-07-28] MEDS: LEVOTHYROXINE 75 MCG TABLET PO SCH (06:30)
[2018-07-28] MEDS: METHYLPREDNISOLONE SOD SUCC 125MG/2ML VIAL IV SCH ×3 (06:30→18:27)
[2018-07-28 06:42] LABS: BASOPHILS % (AUTO) 0.1 % (0.0-5.0); HEMATOCRIT 34.4 % (42-54); LYMPHOCYTES % (AUTO) 3.5 % (21.0-51.0); MEAN CORPUSCULAR HEMOGLOBIN 36.2 pg (27.0-33.0); MEAN CORPUSCULAR VOLUME 106.3 fL (79-99); MONOCYTES % (AUTO) 1.5 % (3.0-13.0); NEUTROPHILS % (AUTO) 94.9 % (40.0-77.0); PLATELET COUNT (AUTO) 181 K/uL (130-400); RED BLOOD CELL COUNT(AUTO) 3.24 MIL/uL (4.50-6.20); RED CELL DISTRIBUTION WIDTH 16.1 % (11.0-15.5); WHITE BLOOD COUNT (AUTO) 13.5 K/uL (4.8-10.8)
[2018-07-28 07:11] LABS: CREATININE 1.5 mg/dL (0.5-1.5); POTASSIUM 5.3 mmol/L (3.5-5.1)
[2018-07-28 08:00] VITALS: BP 133/69
[2018-07-28] MEDS: FUROSEMIDE 10 MG/ML 2ML VIAL IV SCH ×2 (09:24→18:27)
[2018-07-28] MEDS: TRAMADOL HCL 50 MG TABLET PO SCH ×3 (09:26→21:56)
[2018-07-28] MEDS: METOPROLOL TARTRATE 50 MG TAB PO SCH ×2 (09:26→21:57)
[2018-07-28] MEDS: SPIRONOLACTONE 25 MG TAB PO SCH (09:27)
[2018-07-28] MEDS: METOLAZONE 2.5 MG TABLET PO SCH (09:27)
[2018-07-28] MEDS: GABAPENTIN 300 MG CAPSULE PO SCH ×3 (09:27→21:56)
[2018-07-28] MEDS: AMIODARONE HCL 200 MG TABLET PO SCH (09:27)
[2018-07-28] MEDS: PANTOPRAZOLE SODIUM 40 MG TABLET.DR PO SCH (09:27)
[2018-07-28] MEDS: ALLOPURINOL 300 MG TABLET PO SCH (09:28)
[2018-07-28] MEDS: ENOXAPARIN SODIUM 40 MG/0.4 ML SYRINGE SQ SCH (09:29)
[2018-07-28 12:00] VITALS: BP 132/69
[2018-07-28 16:00] VITALS: BP 133/69
--- NOTE | 2018-07-28 16:15 | NUR ---
JU PT SEEN W SPOUSE AT BEDSIDE, AAOX 3 ENG SPKG IND OF ADLS AND DRIVES HOWEVER PTSTATES HAS MOBILITY ISSUES- SEVERAL SCOOTERS, WHEELCHAIR, ROLLING WALKER; NO OXYGEN NO , PROVIDER SERVICES; CM TO FOLLOW Addendum: 07/28/18 at 1810 by HETAL MCNEIL RN CM Amended: Links added.
[2018-07-28 19:40] VITALS: BP 126/63
[2018-07-28] MEDS: SIMVASTATIN 20 MG TABLET PO SCH (21:56)
[2018-07-29] VITALS (7 sets, daily range): BP systolic 115–133; BP diastolic 52–71
[2018-07-29] MEDS: LEVOFLOXACIN 500 MG/D5W 100 ML 100 ML IV SCH (01:30)
[2018-07-29] MEDS: CEFTRIAXONE SODIUM 1 GM IV SCH (01:30)
[2018-07-29] MEDS: METHYLPREDNISOLONE SOD SUCC 125MG/2ML VIAL IV SCH ×2 (01:30→06:30)
[2018-07-29] MEDS: IPRATROPIUM/ALBUTEROL SULFATE 3 ML SOLUTION IH SCH ×6 (01:54→21:40)
[2018-07-29 04:43] LABS: BASOPHILS % (AUTO) 0.1 % (0.0-5.0); HEMATOCRIT 35.9 % (42-54); LYMPHOCYTES % (AUTO) 3.6 % (21.0-51.0); MEAN CORPUSCULAR HEMOGLOBIN 36.3 pg (27.0-33.0); MEAN CORPUSCULAR HGB CONC 34.2 g/dL (32.0-36.0); MEAN CORPUSCULAR VOLUME 106.1 fL (79-99); NEUTROPHILS % (AUTO) 94.3 % (40.0-77.0); NUCLEATED RED BLOOD CELLS 0.2 % (0.0-0.19); PLATELET COUNT (AUTO) 181 K/uL (130-400); RED BLOOD CELL COUNT(AUTO) 3.38 MIL/uL (4.50-6.20); RED CELL DISTRIBUTION WIDTH 15.9 % (11.0-15.5); WHITE BLOOD COUNT (AUTO) 15.6 K/uL (4.8-10.8)
[2018-07-29 04:59] LABS: CREATININE 1.8 mg/dL (0.5-1.5); POTASSIUM 4.3 mmol/L (3.5-5.1)
[2018-07-29] MEDS: LEVOTHYROXINE 75 MCG TABLET PO SCH (06:30)
[2018-07-29] MEDS: ALLOPURINOL 300 MG TABLET PO SCH (09:16)
[2018-07-29] MEDS: TRAMADOL HCL 50 MG TABLET PO SCH ×3 (09:17→20:18)
[2018-07-29] MEDS: SPIRONOLACTONE 25 MG TAB PO SCH (09:17)
[2018-07-29] MEDS: METOPROLOL TARTRATE 50 MG TAB PO SCH ×3 (09:18→20:18)
[2018-07-29] MEDS: PANTOPRAZOLE SODIUM 40 MG TABLET.DR PO SCH (09:19)
[2018-07-29] MEDS: GABAPENTIN 300 MG CAPSULE PO SCH ×3 (09:19→20:18)
[2018-07-29] MEDS: AMIODARONE HCL 200 MG TABLET PO SCH (09:19)
[2018-07-29] MEDS: FUROSEMIDE 10 MG/ML 2ML VIAL IV SCH (09:20)
[2018-07-29] MEDS: ENOXAPARIN SODIUM 40 MG/0.4 ML SYRINGE SQ SCH (09:21)
[2018-07-29] MEDS: FUROSEMIDE 20 MG TABLET PO SCH ×2 (15:45→20:28)
[2018-07-29 17:59] LABS: MEAN CORPUSCULAR HGB CONC 33.6 g/dL (32.0-36.0); MEAN CORPUSCULAR VOLUME 107.2 fL (79-99); NUCLEATED RED BLOOD CELLS 0.3 % (0.0-0.19); PLATELET COUNT (AUTO) 207 K/uL (130-400); RED BLOOD CELL COUNT(AUTO) 3.73 MIL/uL (4.50-6.20); WHITE BLOOD COUNT (AUTO) 17.1 K/uL (4.8-10.8)
[2018-07-29] MEDS: SIMVASTATIN 20 MG TABLET PO SCH (20:17)
[2018-07-30] MEDS: IPRATROPIUM/ALBUTEROL SULFATE 3 ML SOLUTION IH SCH ×3 (01:36→09:57)
[2018-07-30 04:15] VITALS: BP 130/63
[2018-07-30 05:07] LABS: POTASSIUM 3.7 mmol/L (3.5-5.1)
[2018-07-30 05:13] LABS: HEMATOCRIT 36.7 % (42-54); MEAN CORPUSCULAR HEMOGLOBIN 35.8 pg (27.0-33.0); MEAN CORPUSCULAR HGB CONC 33.9 g/dL (32.0-36.0); MEAN CORPUSCULAR VOLUME 105.6 fL (79-99); NUCLEATED RED BLOOD CELLS 0.2 % (0.0-0.19); PLATELET COUNT (AUTO) 183 K/uL (130-400); RED BLOOD CELL COUNT(AUTO) 3.48 MIL/uL (4.50-6.20); RED CELL DISTRIBUTION WIDTH 15.3 % (11.0-15.5); WHITE BLOOD COUNT (AUTO) 14.2 K/uL (4.8-10.8)
[2018-07-30 05:14] LABS: CREATININE 1.7 mg/dL (0.5-1.5)
[2018-07-30] MEDS: LEVOTHYROXINE 75 MCG TABLET PO SCH (06:28)
[2018-07-30 08:00] VITALS: BP 136/85
[2018-07-30] MEDS ORDERED: PREDNISONE 20 MG TABLET PO SCH (09:00)
[2018-07-30] MEDS: ENOXAPARIN SODIUM 40 MG/0.4 ML SYRINGE SQ SCH (09:00)
[2018-07-30] MEDS ORDERED: LEVOFLOXACIN 500 MG TABLET PO SCH (09:00)
[2018-07-30] MEDS ORDERED: GABAPENTIN 300 MG CAPSULE PO SCH (09:00)
[2018-07-30] MEDS ORDERED: FUROSEMIDE 20 MG TABLET PO SCH (09:00)
[2018-07-30] MEDS: METOPROLOL TARTRATE 50 MG TAB PO SCH (09:09)
[2018-07-30] MEDS: ALLOPURINOL 300 MG TABLET PO SCH (09:10)
[2018-07-30] MEDS: METOLAZONE 2.5 MG TABLET PO SCH (09:11)
[2018-07-30] MEDS: SPIRONOLACTONE 25 MG TAB PO SCH (09:11)
[2018-07-30] MEDS: PANTOPRAZOLE SODIUM 40 MG TABLET.DR PO SCH (09:12)
[2018-07-30] MEDS: TRAMADOL HCL 50 MG TABLET PO SCH (09:12)
[2018-07-30] MEDS: AMIODARONE HCL 200 MG TABLET PO SCH (09:12)
[2018-07-30] MEDS ORDERED: LEVO500T89 PO (10:29)
[2018-07-30] MEDS ORDERED: BENZ-17 PO (10:34)
--- NOTE | 2018-07-30 11:55 | NUR ---
DISCHARGE DISCHARGE TEACHING PROVIDED TO PATIENT, RX TEACHING PROVIDED TO PATIENT. INFORMED PATIENT OF SCHEDULED F/U WITH DR. ZUNIGA. PATIENT VERBALIZED UNDERSTANDING OF DISCHARGE TEACHING. REMOVED 20GIV FROM LEFT AC, CATHETER INTACT. PATIENT IS IN NO APPARENT DISTRESS AND REPORTS NO DISCOMFORTS. PATIENT AWAITING FOR TO PICK HIM UP.
[2018-08-05] MEDS ORDERED: TRAM50TA4 PO (00:44)
== END 2018-07-30 12:25 | disposition home or self-care (01) | DRG 193 ==
LOC: EDH 23:13 → EDHIP 07-27 00:25 → 4BH 07-27 20:37
PROVIDERS: ADMIT Hospitalist; ATTEND Hospitalist
DX: J18.9 Pneumonia, unspecified organism (principal); I50.31 Acute diastolic (congestive) heart failure; E87.1 Hypo-osmolality and hyponatremia; I13.0 Hypertensive heart and chronic kidney disease with heart failure and stage 1 through stage 4 chronic kidney disease, or unspecified chronic kidney disease; I42.9 Cardiomyopathy, unspecified; N17.9 Acute kidney failure, unspecified; N18.9 Chronic kidney disease, unspecified; E87.5 Hyperkalemia; E78.5 Hyperlipidemia, unspecified; G47.33 Obstructive sleep apnea (adult) (pediatric); G89.29 Other chronic pain; M54.9 Dorsalgia, unspecified; T38.0X5A Adverse effect of glucocorticoids and synthetic analogues, initial encounter; I48.91 Unspecified atrial fibrillation; Z80.0 Family history of malignant neoplasm of digestive organs; Z80.8 Family history of malignant neoplasm of other organs or systems; Z82.49 Family history of ischemic heart disease and other diseases of the circulatory system; Z83.3 Family history of diabetes mellitus; Z85.46 Personal history of malignant neoplasm of prostate; Z87.891 Personal history of nicotine dependence; Z95.810 Presence of automatic (implantable) cardiac defibrillator; Z88.8 Allergy status to other drugs, medicaments and biological substances; Y92.89 Other specified places as the place of occurrence of the external cause
CPT/HCPCS: 36415; 71045; 80048; 80053; 81003; 83605; 83880; 84132; 84484; 85025; 85027; 85610; 85730; 87040; 87071; 87205; 87804; 93005; 94640; 94664; G0378; J0696; J1650; J1940; J1956; J2920; J2930

== ENCOUNTER 2018-08-04 11:42 | Inpatient (IN) | payer MEDICARE | END 2018-08-08 18:45 | LOC: EDH 11:42 → EDHIP 14:36 → 3AH 22:29 | DX: N17.9 Acute kidney failure, unspecified (principal); I13.0 Hypertensive heart and chronic kidney disease with heart failure and stage 1 through stage 4 chronic kidney disease, or unspecified chronic kidney disease; M86.9 Osteomyelitis, unspecified; D72.829 Elevated white blood cell count, unspecified; R53.1 Weakness; Z88.1 Allergy status to other antibiotic agents; L27.0 Generalized skin eruption due to drugs and medicaments taken internally; T36.8X5A Adverse effect of other systemic antibiotics, initial encounter; K21.9 Gastro-esophageal reflux disease without esophagitis; N18.9 Chronic kidney disease, unspecified; R53.81 Other malaise; C43.9 Malignant melanoma of skin, unspecified; Z96.653 Presence of artificial knee joint, bilateral ==

== ENCOUNTER 2018-10-04 20:00 | Inpatient (IN) | payer MEDICARE ==
[~2018-10-04] VITALS: Ht 172.7 cm; Wt 61.0 kg
[~2018-10-04 20:00] MED LIST changes: +AMIO200T5 PO; +BENZ-17 PO; -CHOL100040 PO; -FOLI0.4T2 PO; +LEVO500T89 PO; +METO2.5T2 PO; -OLOP2.5D5 OU; +SPIR25TA PO
[2018-10-04] MEDS ORDERED: MORPHINE SULFATE 4 MG/1ML SYG ONE (20:48)
[2018-10-04 20:50] LABS: BASOPHILS % (AUTO) 0.7 % (0.0-5.0); EOSINOPHILS % (AUTO) 0.9 % (0.0-8.0); HEMATOCRIT 29.8 % (42-54); LYMPHOCYTES % (AUTO) 8.4 % (21.0-51.0); MEAN CORPUSCULAR HEMOGLOBIN 34.7 pg (27.0-33.0); MEAN CORPUSCULAR VOLUME 102.1 fL (79-99); MONOCYTES % (AUTO) 7.3 % (3.0-13.0); NEUTROPHILS % (AUTO) 82.7 % (40.0-77.0); NUCLEATED RED BLOOD CELLS 0.1 % (0.0-0.19); PLATELET COUNT (AUTO) 252 K/uL (130-400); RED BLOOD CELL COUNT(AUTO) 2.92 MIL/uL (4.50-6.20); RED CELL DISTRIBUTION WIDTH 18.5 % (11.0-15.5); WHITE BLOOD COUNT (AUTO) 11.5 K/uL (4.8-10.8)
[2018-10-04 21:03] LABS: CREATININE 1.5 mg/dL (0.5-1.5); POTASSIUM 3.9 mmol/L (3.5-5.1)
[2018-10-04 21:07] LABS: BILIRUBIN,TOTAL 0.7 mg/dL (0.2-1.0); MAGNESIUM 0.7 mg/dL (1.80-2.40); TOTAL PROTEIN, SERUM 6.7 g/dL (6.0-8.3)
[2018-10-04 21:16] LABS: INR 1.09 (0.85-1.15); PARTIAL THROMBOPLASTIN TIME 35.7 SEC (26.3-35.5); PROTHROMBIN TIME 11.4 SEC (9.6-11.6)
[2018-10-04 22:15] LABS: APPEARANCE,URINE Clear (CLEAR); BILIRUBIN,URINE Negative (NEGATIVE); COLOR,URINE Yellow (YELLOW); GLUCOSE, URINE (UA) Negative (NEGATIVE); KETONES,URINE Negative (NEGATIVE); LEUKOCYTE ESTERASE ,URINE Negative (NEGATIVE); NITRATE,URINE Negative (NEGATIVE); OCCULT BLOOD,URINE Negative (NEGATIVE); PROTEIN,URINE Negative (NEGATIVE)
[2018-10-05] VITALS (8 sets, daily range): BP systolic 108–131; BP diastolic 47–61
[2018-10-05] MEDS ORDERED: LACTULOSE 20 GM/30 ML UDCUP PO PRN
[2018-10-05] MEDS ORDERED: ONDANSETRON HCL 4 MG/2 ML VIAL IV PRN
[2018-10-05] MEDS ORDERED: ACETAMINOPHEN 325 MG TAB PO PRN
[2018-10-05] MEDS ORDERED: MAGNESIUM 2GM PREMIX 50ML 50 ML IV ONE (00:14)
[2018-10-05] MEDS ORDERED: MAGNESIUM 2GM PREMIX 50ML 50 ML IV PRN (00:30)
[2018-10-05] MEDS ORDERED: ALLO100T PO (01:07)
[2018-10-05] MEDS ORDERED: FOLI0.8C PO (01:24)
[2018-10-05] MEDS ORDERED: OLOP2.5D5 OP (01:24)
[2018-10-05 04:18] LABS: BASOPHILS % (AUTO) 0.6 % (0.0-5.0); EOSINOPHILS % (AUTO) 1.2 % (0.0-8.0); HEMATOCRIT 28.3 % (42-54); LYMPHOCYTES % (AUTO) 11.2 % (21.0-51.0); MEAN CORPUSCULAR HGB CONC 35.4 g/dL (32.0-36.0); MEAN CORPUSCULAR VOLUME 101.7 fL (79-99); MONOCYTES % (AUTO) 6.9 % (3.0-13.0); NEUTROPHILS % (AUTO) 80.1 % (40.0-77.0); NUCLEATED RED BLOOD CELLS 0.1 % (0.0-0.19); PLATELET COUNT (AUTO) 222 K/uL (130-400); RED BLOOD CELL COUNT(AUTO) 2.78 MIL/uL (4.50-6.20); RED CELL DISTRIBUTION WIDTH 18.1 % (11.0-15.5); WHITE BLOOD COUNT (AUTO) 10.5 K/uL (4.8-10.8)
[2018-10-05 04:21] LABS: CREATININE 1.4 mg/dL (0.5-1.5); POTASSIUM 3.6 mmol/L (3.5-5.1)
[2018-10-05] MEDS ORDERED: POTASSIUM CHLORIDE 10% ELIXIR 20 MEQ/15 ML UDCUP PO PRN (05:15)
[2018-10-05] MEDS ORDERED: POTASSIUM CHLORIDE 20 MEQ ERTAB PO PRN (05:15)
[2018-10-05] MEDS ORDERED: POTASSIUM CHLORIDE 20MEQ/100ML 100 ML IV PRN (05:15)
[2018-10-05] MEDS ORDERED: LEVOTHYROXINE 75 MCG TABLET PO SCH (07:30)
--- NOTE | 2018-10-05 08:00 | NUR ---
ASSESSMENT ENCOUNTERED PT IN SEMI PALACIOS'S POSITION, A&OX3, CALM COOPERATIVE BUT DOES HAVE INTERMITTENT EPISODES OF DISCOMFORT TO LOWER EXTREMITIES R > L. BUT DENIES DIZZINESS OR LIGHTHEADEDNESS. PT STATES HE HAS BEEN UNABLE TO AMBULATE DUE TO LOWER EXTREMITY WEAKNESS. PT IS ABLE TO TOLERATE FOODS AND FLUIDS WITH NO THROAT CLEARING OR COUGH. CALL LIGHT WITHIN REACH, FAMILY AT BEDSIDE.
[2018-10-05] MEDS ORDERED: FAMOTIDINE 20MG TAB 20 MG TAB PO SCH (09:00)
[2018-10-05] MEDS: **HM** DEXILANT 60MG PO SCH (09:00)
[2018-10-05] MEDS: PAZEO EYE OP SCH (09:00)
[2018-10-05] MEDS ORDERED: GABAPENTIN 300 MG CAPSULE PO SCH (09:00)
[2018-10-05] MEDS: SODIUM CHLORIDE 0.9% 1000ML 1,000 ML IV SCH ×3 (10:00→20:00)
[2018-10-05] MEDS ORDERED: TRAMADOL HCL 50 MG TABLET ONE (10:01)
[2018-10-05 10:28] LABS: CREATININE 1.4 mg/dL (0.5-1.5); MAGNESIUM 2.9 mg/dL (1.80-2.40); POTASSIUM 3.4 mmol/L (3.5-5.1)
[2018-10-05] MEDS: LORATADINE 10 MG TABLET PO SCH (10:28)
[2018-10-05] MEDS: FOLIC ACID 1 MG TABLET PO SCH (10:29)
[2018-10-05] MEDS: ALLOPURINOL 100 MG TABLET PO SCH ×2 (10:29→22:09)
[2018-10-05] MEDS: METOLAZONE 2.5 MG TABLET PO SCH (10:29)
[2018-10-05] MEDS: AMIODARONE HCL 200 MG TABLET PO SCH (10:29)
[2018-10-05] MEDS: SPIRONOLACTONE 25 MG TAB PO SCH ×2 (10:30→22:09)
[2018-10-05] MEDS: FUROSEMIDE 40 MG TABLET PO SCH ×2 (10:30→22:12)
[2018-10-05] MEDS: ENOXAPARIN SODIUM 40 MG/0.4 ML SYRINGE SQ SCH (10:31)
[2018-10-05] MEDS: METOPROLOL TARTRATE 50 MG TAB PO SCH ×2 (10:31→21:00)
[2018-10-05] MEDS: TRAMADOL HCL 50 MG TABLET PO SCH (12:00)
[2018-10-05] MEDS: GABAPENTIN 300 MG CAPSULE PO SCH ×2 (14:34→22:09)
[2018-10-05] MEDS: PREGABALIN 75 MG CAPSULE PO SCH ×2 (14:34→22:10)
--- NOTE | 2018-10-05 16:30 | NUR ---
DR STAHL UPDATED ORDERS RECEIVED
--- NOTE | 2018-10-05 16:54 | NUR ---
cm note met with patient and . pt resides with spouse at home. pt was ambulatory until recently progressively worsened, unable to ambulate. pt has a w/c and walkers at home also a cpap machine in place. assists with all care, and also uses an [facility] for md visits. pt and state dc plan will probably be to a rehab in [facility]. have discussed with dr Vasquez, and daughter, and will decide when closer to dc. Addendum: 10/05/18 at 1657 by GARY RIVERA CM Amended: Links added.
[2018-10-05] MEDS ORDERED: PREGABALIN 75 MG CAPSULE PO SCH (21:00)
[2018-10-05] MEDS: SIMVASTATIN 20 MG TABLET PO SCH (22:09)
[2018-10-05] MEDS: MONTELUKAST SODIUM 10 MG TAB PO SCH (22:09)
[2018-10-05] MEDS: CYANOCOBALAMIN (VITAMIN B-12) 1,000 MCG TABLET PO SCH (22:09)
[2018-10-06] VITALS (12 sets, daily range): BP systolic 102–125; BP diastolic 51–64
[2018-10-06 04:06] LABS: HEMATOCRIT 29.1 % (42-54); MEAN CORPUSCULAR HEMOGLOBIN 34.6 pg (27.0-33.0); MEAN CORPUSCULAR VOLUME 101.8 fL (79-99); PLATELET COUNT (AUTO) 256 K/uL (130-400); RED BLOOD CELL COUNT(AUTO) 2.86 MIL/uL (4.50-6.20); RED CELL DISTRIBUTION WIDTH 18.4 % (11.0-15.5); WHITE BLOOD COUNT (AUTO) 11.6 K/uL (4.8-10.8)
[2018-10-06 04:14] LABS: CREATININE 1.3 mg/dL (0.5-1.5)
[2018-10-06] MEDS: SODIUM CHLORIDE 0.9% 1000ML 1,000 ML IV SCH ×2 (06:00→16:00)
[2018-10-06] MEDS: LEVOTHYROXINE 75 MCG TABLET PO SCH (06:01)
[2018-10-06] MEDS: PAZEO EYE OP SCH (09:00)
[2018-10-06] MEDS: **HM** DEXILANT 60MG PO SCH (09:00)
[2018-10-06] MEDS: FOLIC ACID 1 MG TABLET PO SCH (09:11)
[2018-10-06] MEDS: AMIODARONE HCL 200 MG TABLET PO SCH (09:11)
[2018-10-06] MEDS: SPIRONOLACTONE 25 MG TAB PO SCH ×2 (09:11→20:20)
[2018-10-06] MEDS: PREGABALIN 75 MG CAPSULE PO SCH ×2 (09:11→20:20)
[2018-10-06] MEDS: FUROSEMIDE 40 MG TABLET PO SCH ×2 (09:11→20:19)
[2018-10-06] MEDS: METOLAZONE 2.5 MG TABLET PO SCH (09:11)
[2018-10-06] MEDS: GABAPENTIN 300 MG CAPSULE PO SCH ×3 (09:11→20:20)
[2018-10-06] MEDS: LORATADINE 10 MG TABLET PO SCH (09:11)
[2018-10-06] MEDS: ENOXAPARIN SODIUM 40 MG/0.4 ML SYRINGE SQ SCH (09:12)
[2018-10-06] MEDS: METOPROLOL TARTRATE 50 MG TAB PO SCH ×2 (09:12→21:00)
[2018-10-06] MEDS: ALLOPURINOL 100 MG TABLET PO SCH ×2 (09:12→20:20)
[2018-10-06] MEDS ORDERED: IOPAMIDOL 10 ML VIAL ONE ×2 (11:30→11:35)
--- NOTE | 2018-10-06 11:52 | NUR ---
CT LUMBAR MYELOGRAM PROCEDURE PERFORMED BY DR Lydia ROBERTO. PUNCTURE SITE LOWER BACK. PATIENT TOLERATED PROCEDURE WELL. CONTRAST INJECTION OF ISOVUE 200MG/20ML GIVEN AT 1145. END OF PROCEDURE AT 1150. SPINAL NEEDLE REMOVED AND BAND AID APPLIED WITH NO BLEEDING NOTED. REPORT GIVEN TO Erin EVANGELISTA RN AND PATIENT TRANSPORTED TO [facility] VIA BED AT 1155 VIA BED. AAO X3 WITH NO C/O PAIN.
[2018-10-06] MEDS: TRAMADOL HCL 50 MG TABLET PO SCH (12:26)
--- NOTE | 2018-10-06 19:30 | NUR ---
DR. STAHL CAME IN TO SEE PT AND SEE CT RESULTS. DISCUSSED RESULTS WITH FAMILY. STATED PENDING FOR DR. CASIANO AND HIM TO DISCUSS PLAN OF CARE AND DECIDE WHO WILL DO LAMINECTOMY THAT PT REQUIRES DUE TO ABNORMAL RESULTS. NEW ORDER FOR CARDIOLOGY CONSULT TO CLEAR FOR PROCEDURE.
[2018-10-06] MEDS: SIMVASTATIN 20 MG TABLET PO SCH (20:19)
[2018-10-06] MEDS: MONTELUKAST SODIUM 10 MG TAB PO SCH (20:19)
[2018-10-06] MEDS: CYANOCOBALAMIN (VITAMIN B-12) 1,000 MCG TABLET PO SCH (20:20)
[2018-10-06] MEDS: MORPHINE SULFATE 4 MG/1ML SYG IV PRN (20:22)
--- NOTE | 2018-10-06 20:30 | NUR ---
PT STATED PAIN TO RIGHT LEG. MEDICATIONS SCHEDULED AT THIS TIME GIVEN, AND MORPHINE GIVEN VIA IV. CONTINUES WITH MILLER CATHETER. PATENT. IV PATENT. REQUIRES ASSIST TO MOVE IN BED.
--- NOTE | 2018-10-06 21:00 | NUR ---
PT'S REQUESTING THAT DR. STAHL, OR DR. CASIANO. WHOEVER WILL BE PERFORMING THE PROCEDURE TO CALL DR. PATRICIA ALEXANDRATER (PT'S DAUGHTER) TO DISCUSS ANESTHESIOLOGY FOR PROCEDURE. #[phone] CELL. [phone] HOME. ALSO INQUIRING ABOUT DR. BRIGGS NEW ORDERS FOR PROCEDURES TO BE DONE AROUND OCTOBER, FAMILY WOULD LIKE TO HAVE THOSE DONE AT [facility] IF ABLE TO. TO CALL CASSIE FROM DR. BRIGGS OFFICE TO DISCUSS PROCEDURES DONE HERE AND AT [facility].
[2018-10-07] MEDS: SODIUM CHLORIDE 0.9% 1000ML 1,000 ML IV SCH ×3 (02:00→22:00)
[2018-10-07 03:33] VITALS: BP 119/50
[2018-10-07] MEDS: LEVOTHYROXINE 75 MCG TABLET PO SCH (05:40)
[2018-10-07] MEDS: MORPHINE SULFATE 4 MG/1ML SYG IV PRN ×2 (05:40→19:49)
[2018-10-07 07:42] VITALS: BP 117/62
[2018-10-07] MEDS: **HM** DEXILANT 60MG PO SCH (09:00)
[2018-10-07] MEDS: PAZEO EYE OP SCH (09:00)
--- NOTE | 2018-10-07 09:00 | NUR ---
CALLED FOR CONSULT FOR KAYLA PAYNE STATED THEY WERE AWARE.
[2018-10-07] MEDS: ALLOPURINOL 100 MG TABLET PO SCH ×2 (09:36→19:48)
[2018-10-07] MEDS: SPIRONOLACTONE 25 MG TAB PO SCH ×2 (09:36→19:48)
[2018-10-07] MEDS: FOLIC ACID 1 MG TABLET PO SCH (09:36)
[2018-10-07] MEDS: AMIODARONE HCL 200 MG TABLET PO SCH (09:36)
[2018-10-07] MEDS: METOLAZONE 2.5 MG TABLET PO SCH (09:36)
[2018-10-07] MEDS: PREGABALIN 75 MG CAPSULE PO SCH ×2 (09:36→19:48)
[2018-10-07] MEDS: GABAPENTIN 300 MG CAPSULE PO SCH ×3 (09:37→21:58)
[2018-10-07] MEDS: FUROSEMIDE 40 MG TABLET PO SCH ×2 (09:37→19:49)
[2018-10-07] MEDS: LORATADINE 10 MG TABLET PO SCH (09:37)
[2018-10-07] MEDS: ENOXAPARIN SODIUM 40 MG/0.4 ML SYRINGE SQ SCH (09:39)
[2018-10-07] MEDS: METOPROLOL TARTRATE 50 MG TAB PO SCH ×2 (09:40→21:00)
[2018-10-07 11:14] VITALS: BP 118/58
[2018-10-07 15:10] VITALS: BP 105/55
[2018-10-07] MEDS: TRAMADOL HCL 50 MG TABLET PO SCH (16:29)
[2018-10-07 18:58] VITALS: BP 102/54
[2018-10-07] MEDS: MONTELUKAST SODIUM 10 MG TAB PO SCH (19:48)
[2018-10-07] MEDS: CYANOCOBALAMIN (VITAMIN B-12) 1,000 MCG TABLET PO SCH (19:48)
[2018-10-07] MEDS: SIMVASTATIN 20 MG TABLET PO SCH (19:48)
[2018-10-07 23:36] VITALS: BP 108/58
[2018-10-08 03:50] VITALS: BP 105/45
[2018-10-08 04:19] LABS: HEMATOCRIT 28.2 % (42-54); MEAN CORPUSCULAR HEMOGLOBIN 34.7 pg (27.0-33.0); MEAN CORPUSCULAR HGB CONC 34.7 g/dL (32.0-36.0); NUCLEATED RED BLOOD CELLS 0.1 % (0.0-0.19); PLATELET COUNT (AUTO) 248 K/uL (130-400); RED BLOOD CELL COUNT(AUTO) 2.82 MIL/uL (4.50-6.20); RED CELL DISTRIBUTION WIDTH 18.2 % (11.0-15.5); WHITE BLOOD COUNT (AUTO) 10.6 K/uL (4.8-10.8)
[2018-10-08 04:25] LABS: CREATININE 1.3 mg/dL (0.5-1.5); POTASSIUM 3.9 mmol/L (3.5-5.1)
[2018-10-08 04:40] LABS: B-TYPE NATRIURETIC PEPTIDE 338 pg/mL (0-100)
[2018-10-08] MEDS: LEVOTHYROXINE 75 MCG TABLET PO SCH (05:27)
[2018-10-08] MEDS: MORPHINE SULFATE 4 MG/1ML SYG IV PRN ×2 (06:28→14:53)
[2018-10-08 07:00] VITALS: BP 109/55
[2018-10-08] MEDS: SODIUM CHLORIDE 0.9% 1000ML 1,000 ML IV SCH ×2 (08:00→17:15)
[2018-10-08] MEDS: PAZEO EYE OP SCH (09:00)
[2018-10-08] MEDS: GABAPENTIN 300 MG CAPSULE PO SCH ×3 (09:32→21:00)
[2018-10-08] MEDS ORDERED: TRAM50TA4 PO (09:32)
[2018-10-08] MEDS: PREGABALIN 75 MG CAPSULE PO SCH ×2 (09:32→20:59)
[2018-10-08] MEDS: AMIODARONE HCL 200 MG TABLET PO SCH (09:33)
[2018-10-08] MEDS: ALLOPURINOL 100 MG TABLET PO SCH ×2 (09:33→20:58)
[2018-10-08] MEDS: LORATADINE 10 MG TABLET PO SCH (09:33)
[2018-10-08] MEDS: SPIRONOLACTONE 25 MG TAB PO SCH ×2 (09:33→20:58)
[2018-10-08] MEDS: FOLIC ACID 1 MG TABLET PO SCH (09:33)
[2018-10-08] MEDS: FUROSEMIDE 40 MG TABLET PO SCH ×2 (09:33→20:59)
[2018-10-08] MEDS: METOLAZONE 2.5 MG TABLET PO SCH (09:34)
[2018-10-08] MEDS: METOPROLOL TARTRATE 50 MG TAB PO SCH ×2 (09:34→21:00)
[2018-10-08] MEDS: ENOXAPARIN SODIUM 40 MG/0.4 ML SYRINGE SQ SCH (09:39)
[2018-10-08] MEDS: **HM** DEXILANT 60MG PO SCH (09:40)
--- NOTE | 2018-10-08 09:41 | NUR ---
DR. Kellee VERDE IN ROOM SPEAKING WITH PT.
[2018-10-08 11:00] VITALS: BP 120/51
--- NOTE | 2018-10-08 11:05 | NUR ---
CALLED DR. STAHL'S OFFICE TO NOTIFY RE:CARDIOLOGY CLEARANCE FOR SURGICAL INTERVENTION. PT.'S INFORMATION PROVIDED TO OFFICE STAFF WHO WILL RELAY INFORMATION. THIS NURSE PLACED ON HOLD BY OFFICE STAFF.
--- NOTE | 2018-10-08 11:06 | NUR ---
DR. METZGER IN ROOM SPEAKING WITH PT. RE:PLAN OF CARE.
--- NOTE | 2018-10-08 11:13 | NUR ---
REBECCA SON, FOR DR. STAHL PER HIMSELF, ANSWERED TELEPHONE LINE. INFORMED P.A. RE:CARDIOLOGY CLEARANCE FOR SURGICAL INTERVENTION. REBECCA NICOLE, STATES," OK, I'LL CHECK WITH DR. STAHL AND HIS SCHEDULE."
[2018-10-08] MEDS: TRAMADOL HCL 50 MG TABLET PO SCH ×2 (12:31→21:01)
[2018-10-08 16:00] VITALS: BP 129/54
[2018-10-08] MEDS ORDERED: HYDROMORPHONE HCL 2 MG/ML VIAL IVP ONE (18:30)
[2018-10-08 19:32] VITALS: BP 114/54
--- NOTE | 2018-10-08 20:46 | NUR ---
DR. STAHL HAVE SPOKEN TO DR. STAHL TO CONFIRM THE START TIME FOR THE SURGERY OF 0700.
[2018-10-08] MEDS: SIMVASTATIN 20 MG TABLET PO SCH (20:58)
[2018-10-08] MEDS: MONTELUKAST SODIUM 10 MG TAB PO SCH (20:59)
[2018-10-08] MEDS: CYANOCOBALAMIN (VITAMIN B-12) 1,000 MCG TABLET PO SCH (20:59)
[2018-10-08 23:39] VITALS: BP 120/61
[2018-10-09] VITALS (26 sets, daily range): BP systolic 93–133; BP diastolic 46–80
[2018-10-09] MEDS: LEVOTHYROXINE 75 MCG TABLET PO SCH (02:04)
[2018-10-09] MEDS: MORPHINE SULFATE 4 MG/1ML SYG IV PRN ×3 (02:28→19:42)
[2018-10-09 03:58] LABS: HEMATOCRIT 28.6 % (42-54); MEAN CORPUSCULAR HEMOGLOBIN 35.3 pg (27.0-33.0); MEAN CORPUSCULAR HGB CONC 34.8 g/dL (32.0-36.0); MEAN CORPUSCULAR VOLUME 101.4 fL (79-99); PLATELET COUNT (AUTO) 239 K/uL (130-400); RED BLOOD CELL COUNT(AUTO) 2.82 MIL/uL (4.50-6.20); RED CELL DISTRIBUTION WIDTH 18.2 % (11.0-15.5); WHITE BLOOD COUNT (AUTO) 10.1 K/uL (4.8-10.8)
[2018-10-09 04:09] LABS: CREATININE 1.3 mg/dL (0.5-1.5); POTASSIUM 3.8 mmol/L (3.5-5.1)
[2018-10-09 04:13] LABS: INR 1.17 (0.85-1.15); PARTIAL THROMBOPLASTIN TIME 40.2 SEC (26.3-35.5); PROTHROMBIN TIME 12.2 SEC (9.6-11.6)
--- NOTE | 2018-10-09 06:00 | NUR ---
TO OR VIA BED. WITH PATIENT.
[2018-10-09] MEDS ORDERED: LACTATED RINGERS 1000ML 1,000 ML IV ONE (06:33)
[2018-10-09] MEDS ORDERED: TOBRAMYCIN SULFATE 40MG/1ML VIAL ONE (06:51)
[2018-10-09] MEDS ORDERED: BUPIVACAINE/PF 0.25% 30ML VIAL IJ ONE (06:51)
[2018-10-09] MEDS ORDERED: THROMBIN-JMI 5000 UNIT/VIAL TP ONE (06:52)
[2018-10-09] MEDS ORDERED: BACITRACIN 50,000 UNIT VIAL ONE (06:52)
[2018-10-09] MEDS ORDERED: CLINDAMYCIN 900 MG/D5% WATER 50 ML IV ONE (07:09)
[2018-10-09] MEDS ORDERED: NEOSTIGMINE 5MG/5ML SYR IV ONE (07:16)
[2018-10-09] MEDS ORDERED: PROPOFOL 10 MG/ML 20ML VIAL IV ONE (07:16)
[2018-10-09] MEDS ORDERED: MIDAZOLAM HCL 1 MG/ML 2ML VIAL ONE (07:16)
[2018-10-09] MEDS ORDERED: DEXAMETHASONE SOD PHOSPHATE 10MG/ML 1ML VIAL ONE (07:16)
[2018-10-09] MEDS ORDERED: SUCCINYLCHOLINE 200MG/10ML SYR ONE (07:16)
[2018-10-09] MEDS ORDERED: ROCURONIUM 10MG/1ML SYR 10 MG/ML ML ONE (07:16)
[2018-10-09] MEDS ORDERED: LIDOCAINE PF 2% 5ML ABBOJECT ONE (07:16)
[2018-10-09] MEDS ORDERED: GLYCOPYRROLATE 1 MG/5 ML SYRINGE ONE (07:16)
[2018-10-09] MEDS ORDERED: FENTANYL CITRATE PF 50 MCG/1 ML 2ML VIAL ONE ×2 (07:17→08:29)
[2018-10-09] MEDS ORDERED: PHENYLEPHRINE HCL 10 MG/ML 1ML VIAL IV ONE (07:17)
[2018-10-09] MEDS: **HM** DEXILANT 60MG PO SCH (08:21)
[2018-10-09] MEDS: FOLIC ACID 1 MG TABLET PO SCH (08:21)
[2018-10-09] MEDS: SPIRONOLACTONE 25 MG TAB PO SCH ×2 (08:21→21:58)
[2018-10-09] MEDS: FUROSEMIDE 40 MG TABLET PO SCH ×2 (08:21→21:56)
[2018-10-09] MEDS: AMIODARONE HCL 200 MG TABLET PO SCH (08:22)
[2018-10-09] MEDS: LORATADINE 10 MG TABLET PO SCH (08:22)
[2018-10-09] MEDS: GABAPENTIN 300 MG CAPSULE PO SCH ×3 (08:22→21:56)
[2018-10-09] MEDS: METOPROLOL TARTRATE 50 MG TAB PO SCH ×2 (08:22→21:58)
[2018-10-09] MEDS: PREGABALIN 75 MG CAPSULE PO SCH ×2 (08:22→21:57)
[2018-10-09] MEDS: METOLAZONE 2.5 MG TABLET PO SCH (08:23)
[2018-10-09] MEDS: ALLOPURINOL 100 MG TABLET PO SCH ×2 (08:23→21:56)
[2018-10-09] MEDS: ENOXAPARIN SODIUM 40 MG/0.4 ML SYRINGE SQ SCH (08:23)
[2018-10-09] MEDS: PAZEO EYE OP SCH (08:23)
[2018-10-09] MEDS: TRAMADOL HCL 50 MG TABLET PO SCH ×2 (08:23→21:57)
[2018-10-09] MEDS ORDERED: IPRATROPIUM/ALBUTEROL SULFATE 3 ML SOLUTION IH ONE (10:39)
--- NOTE | 2018-10-09 11:35 | NUR ---
RETURNED TO ROOM WITH EYES CLOSED, RESP.'S EVEN AND UNLABORED. FAYE IN PLACE. OPENS EYES TO VERBAL COMMAND. DENIES ANY C/O AT THIS TIME. CALL LIGHT WITHIN REACH.
--- NOTE | 2018-10-09 13:30 | NUR ---
RESTING IN BED WITH EYES CLOSED, RESP.'S EVEN AND UNLABORED. CALL LIGHT WITHIN REACH. DAUGHTER AT BEDSIDE.
--- NOTE | 2018-10-09 14:43 | NUR ---
2:45 Patient was still very drowsy, pending brace to get OOB or from supine to sit at the edge of the bed.Daughter Magdy was in the room and explained that we will attempt to initiate Physical Therapy Evaluation tomorrow AM.Notified LIDIA GARCIA regarding this matter. Addendum: 10/09/18 at 1448 by SANJANA GOMES, PT PT Amended: Links added.
--- NOTE | 2018-10-09 16:28 | NUR ---
ARPAN PLAN VISITED WITH PATIENT. SPOUSE AND DAUGHTER IN ROOM. AFTER DISCUSSION DECIDED ON [facility]. CELAYA SIGNED INFO SENT. SPOKE TO REP WILL VISIT WITH PATIENT. Addendum: 10/09/18 at 1629 by CIARAN SUTTON RN CM Amended: Links added.
--- NOTE | 2018-10-09 17:30 | NUR ---
RESTING IN BED WITH EYES CLOSED, RESP.'S EVEN AND UNLABORED. SPOUSE AT BESIDE. CALL LIGHT WITHIN REACH.
[2018-10-09] MEDS: SIMVASTATIN 20 MG TABLET PO SCH (21:57)
[2018-10-09] MEDS: MONTELUKAST SODIUM 10 MG TAB PO SCH (21:57)
[2018-10-09] MEDS: CYANOCOBALAMIN (VITAMIN B-12) 1,000 MCG TABLET PO SCH (21:58)
[2018-10-10 03:53] VITALS: BP 108/60
[2018-10-10] MEDS ORDERED: HYDROCODONE/ACETAMINOPHEN 5/325 MG TAB ONE (05:08)
[2018-10-10] MEDS ORDERED: HYDROCODONE/ACETAMINOPHEN 5/325 MG TAB PO PRN ×2 (05:15)
[2018-10-10] MEDS: LEVOTHYROXINE 75 MCG TABLET PO SCH (06:05)
[2018-10-10 07:48] VITALS: BP 100/46
[2018-10-10] MEDS: **HM** DEXILANT 60MG PO SCH (09:00)
[2018-10-10] MEDS: PAZEO EYE OP SCH (09:00)
[2018-10-10] MEDS: LORATADINE 10 MG TABLET PO SCH (10:32)
[2018-10-10] MEDS: FUROSEMIDE 40 MG TABLET PO SCH ×2 (10:32→21:22)
[2018-10-10] MEDS: PREGABALIN 75 MG CAPSULE PO SCH ×2 (10:32→21:18)
[2018-10-10] MEDS: METOPROLOL TARTRATE 50 MG TAB PO SCH ×2 (10:32→21:19)
[2018-10-10] MEDS: ALLOPURINOL 100 MG TABLET PO SCH ×2 (10:32→21:21)
[2018-10-10] MEDS: METOLAZONE 2.5 MG TABLET PO SCH (10:32)
[2018-10-10] MEDS: FOLIC ACID 1 MG TABLET PO SCH (10:33)
[2018-10-10] MEDS: TRAMADOL HCL 50 MG TABLET PO SCH ×2 (10:33→21:20)
[2018-10-10] MEDS: SPIRONOLACTONE 25 MG TAB PO SCH ×2 (10:33→21:19)
[2018-10-10] MEDS: GABAPENTIN 300 MG CAPSULE PO SCH ×3 (11:00→21:22)
[2018-10-10] MEDS: AMIODARONE HCL 200 MG TABLET PO SCH (11:00)
[2018-10-10] MEDS: HEPARIN SODIUM 5000UNIT/ML 1ML VIAL SQ SCH ×2 (11:01→21:18)
--- NOTE | 2018-10-10 11:25 | NUR ---
DC PLAN INFO SENT TO [facility]. REP VISITED PENDING ACCEPTANCE. PATIENT WILL GO VIA AMBULANCE DUE SAFETY AND 02 NEEDS. Addendum: 10/10/18 at 1126 by CIARAN SUTTON RN CM Amended: Links added.
[2018-10-10 11:53] VITALS: BP 108/56
[2018-10-10] MEDS: MORPHINE SULFATE 4 MG/1ML SYG IV PRN (11:57)
[2018-10-10 16:01] VITALS: BP 98/50
[2018-10-10 19:17] VITALS: BP 107/62
[2018-10-10] MEDS: CYANOCOBALAMIN (VITAMIN B-12) 1,000 MCG TABLET PO SCH (21:21)
[2018-10-10] MEDS: SIMVASTATIN 20 MG TABLET PO SCH (21:22)
[2018-10-10] MEDS: MONTELUKAST SODIUM 10 MG TAB PO SCH (21:23)
[2018-10-10 23:40] VITALS: BP 107/46
[2018-10-11 04:09] VITALS: BP 127/59
[2018-10-11 04:25] LABS: MEAN CORPUSCULAR HEMOGLOBIN 34.7 pg (27.0-33.0); MEAN CORPUSCULAR HGB CONC 34.5 g/dL (32.0-36.0); MEAN CORPUSCULAR VOLUME 100.8 fL (79-99); NUCLEATED RED BLOOD CELLS 0.2 % (0.0-0.19); PLATELET COUNT (AUTO) 248 K/uL (130-400); RED BLOOD CELL COUNT(AUTO) 2.58 MIL/uL (4.50-6.20); RED CELL DISTRIBUTION WIDTH 18.4 % (11.0-15.5); WHITE BLOOD COUNT (AUTO) 13.7 K/uL (4.8-10.8)
[2018-10-11 04:44] LABS: CREATININE 1.5 mg/dL (0.5-1.5)
[2018-10-11] MEDS: LEVOTHYROXINE 75 MCG TABLET PO SCH (06:33)
[2018-10-11 07:16] VITALS: BP 97/53
[2018-10-11] MEDS: PAZEO EYE OP SCH (07:44)
[2018-10-11] MEDS: **HM** DEXILANT 60MG PO SCH (09:00)
[2018-10-11] MEDS ORDERED: COLCHICINE 0.6 MG TABLET PO SCH (09:00)
[2018-10-11] MEDS: METOPROLOL TARTRATE 50 MG TAB PO SCH (09:52)
[2018-10-11] MEDS: ALLOPURINOL 100 MG TABLET PO SCH (09:53)
[2018-10-11] MEDS: LORATADINE 10 MG TABLET PO SCH (09:53)
[2018-10-11] MEDS: FUROSEMIDE 40 MG TABLET PO SCH (09:53)
[2018-10-11] MEDS: FOLIC ACID 1 MG TABLET PO SCH (09:54)
[2018-10-11] MEDS: AMIODARONE HCL 200 MG TABLET PO SCH (09:54)
[2018-10-11] MEDS: GABAPENTIN 300 MG CAPSULE PO SCH ×2 (09:54→13:40)
[2018-10-11] MEDS: SPIRONOLACTONE 25 MG TAB PO SCH (09:54)
[2018-10-11] MEDS: PREGABALIN 75 MG CAPSULE PO SCH (09:54)
[2018-10-11] MEDS: TRAMADOL HCL 50 MG TABLET PO SCH (09:55)
[2018-10-11] MEDS: HEPARIN SODIUM 5000UNIT/ML 1ML VIAL SQ SCH (10:07)
[2018-10-11] MEDS ORDERED: GUAIFENESIN-DM 200/20 MG 10 ML PO PRN (10:15)
[2018-10-11] MEDS: MORPHINE SULFATE 4 MG/1ML SYG IV PRN (10:38)
[2018-10-11 11:30] VITALS: BP 99/50
[2018-10-11 15:35] VITALS: BP 92/50
== END 2018-10-11 16:40 | DRG 459 ==
LOC: EDH 20:00 → EDHIP 22:47 → 2AH 10-05 00:10
PROVIDERS: ADMIT Hospitalist; ATTEND Hospitalist
PROC: 0SG00K1 Fusion of Lumbar Vertebral Joint with Nonautologous Tissue Substitute, Posterior Approach, Posterior Column, Open Approach (ICD-10-PCS; principal; 2018-10-09 07:00)
PROC: 00UT0KZ Supplement Spinal Meninges with Nonautologous Tissue Substitute, Open Approach (ICD-10-PCS; 2018-10-09 07:00)
DX: M48.061 Spinal stenosis, lumbar region without neurogenic claudication (principal); I50.23 Acute on chronic systolic (congestive) heart failure; M47.16 Other spondylosis with myelopathy, lumbar region; E44.0 Moderate protein-calorie malnutrition; E22.2 Syndrome of inappropriate secretion of antidiuretic hormone; E87.0 Hyperosmolality and hypernatremia; I13.0 Hypertensive heart and chronic kidney disease with heart failure and stage 1 through stage 4 chronic kidney disease, or unspecified chronic kidney disease; I42.0 Dilated cardiomyopathy; N04.9 Nephrotic syndrome with unspecified morphologic changes; M47.26 Other spondylosis with radiculopathy, lumbar region; M48.07 Spinal stenosis, lumbosacral region; G62.9 Polyneuropathy, unspecified; E83.42 Hypomagnesemia; E66.9 Obesity, unspecified; D72.829 Elevated white blood cell count, unspecified; R33.9 Retention of urine, unspecified; M10.9 Gout, unspecified; Z68.20 Body mass index [BMI] 20.0-20.9, adult; E03.9 Hypothyroidism, unspecified; E78.5 Hyperlipidemia, unspecified; G47.33 Obstructive sleep apnea (adult) (pediatric); G89.29 Other chronic pain; N18.9 Chronic kidney disease, unspecified; I25.10 Atherosclerotic heart disease of native coronary artery without angina pectoris; I44.7 Left bundle-branch block, unspecified; K21.9 Gastro-esophageal reflux disease without esophagitis; M19.90 Unspecified osteoarthritis, unspecified site; M85.80 Other specified disorders of bone density and structure, unspecified site; Z96.653 Presence of artificial knee joint, bilateral; Z95.810 Presence of automatic (implantable) cardiac defibrillator; Z88.8 Allergy status to other drugs, medicaments and biological substances; Z95.0 Presence of cardiac pacemaker; Z90.79 Acquired absence of other genital organ(s); Z85.820 Personal history of malignant melanoma of skin; Z85.46 Personal history of malignant neoplasm of prostate; Z83.3 Family history of diabetes mellitus; Z82.49 Family history of ischemic heart disease and other diseases of the circulatory system; Z80.8 Family history of malignant neoplasm of other organs or systems; Z80.0 Family history of malignant neoplasm of digestive organs
CPT/HCPCS: 36415; 62304; 71045; 72020; 72129; 72131; 72132; 80048; 80053; 81003; 82550; 83735; 83880; 84484; 85025; 85027; 85610; 85651; 85730; 86140; 93005; 94640; 97039; G0378; J0330; J1100; J1170; J1644; J1650; J2001; J2250; J2270; J2370; J2704; J2710; J3010; J3260; J3475; J3490; J7030; J7120

== ENCOUNTER → 2019-10-22 | Outpatient (CLI) | payer MEDICARE ==
[~2019-10-22] MED LIST changes: +ALLO100T PO; -AMIO200T5 PO; +AMIO200T6 PO; -BENZ-17 PO; +FOLI0.8C PO; -IPRA4AER IH; -LEVO500T89 PO; -MOME13HF IH; -MONT10TA24 PO; +MONT10TA26 PO; +OLOP2.5D5 OP; +PYRI100T10 PO; -PYRI100T2 PO; +SIMV-43 PO; -SIMV20TA6 PO; -[UNRECOGNIZED DRUG - CODE] PO; -[UNRECOGNIZED DRUG - OTHER] PO
== END | disposition home or self-care (01) ==
LOC: SHCH 13:42
PROVIDERS: ATTEND Internal Medicine Cardiovascular Disease
DX: I82.403 Acute embolism and thrombosis of unspecified deep veins of lower extremity, bilateral (principal); M79.661 Pain in right lower leg; M79.662 Pain in left lower leg
CPT/HCPCS: 93970

== ENCOUNTER → 2020-04-27 | Outpatient (CLI) | payer MEDICARE ==
[~2020-04-27] MED LIST changes: +IPRA0.2S54 IH; -MONT10TA26 PO; +MONT10TA96 PO
== END | disposition home or self-care (01) ==
LOC: RAH 10:28
PROVIDERS: ATTEND Otolaryngology
DX: R13.10 Dysphagia, unspecified (principal); R63.3 Feeding difficulties
CPT/HCPCS: 74230; 92611

== ENCOUNTER → 2020-05-05 | Outpatient (CLI) | payer MEDICARE | END | disposition home or self-care (01) | LOC: RAH 13:54 | PROVIDERS: ATTEND Internal Medicine | DX: M51.36 Other intervertebral disc degeneration, lumbar region (principal); M47.816 Spondylosis without myelopathy or radiculopathy, lumbar region; M48.061 Spinal stenosis, lumbar region without neurogenic claudication; I89.8 Other specified noninfective disorders of lymphatic vessels and lymph nodes; I51.7 Cardiomegaly; M47.814 Spondylosis without myelopathy or radiculopathy, thoracic region; M51.34 Other intervertebral disc degeneration, thoracic region; J90 Pleural effusion, not elsewhere classified; M43.26 Fusion of spine, lumbar region; M48.07 Spinal stenosis, lumbosacral region; M41.86 Other forms of scoliosis, lumbar region; M48.05 Spinal stenosis, thoracolumbar region; Z98.890 Other specified postprocedural states | CPT/HCPCS: 71250; 72131 ==

== ENCOUNTER 2021-05-31 13:11 | Observation (INO) | payer OTHER, MEDICARE ==
[~2021-05-31] VITALS: Ht 170.2 cm; Wt 74.4 kg
[~2021-05-31 13:11] MED LIST changes: -AMIO200T6 PO; +AMIO200T68 PO; +MONT-39 PO; -MONT10TA96 PO
[2021-05-31 13:49] LABS: BASOPHILS % (AUTO) 0.2 % (0.0-5.0); EOSINOPHILS % (AUTO) 0.2 % (0.0-8.0); HEMATOCRIT 24.8 % (42-54); LYMPHOCYTES % (AUTO) 7.3 % (21.0-51.0); MEAN CORPUSCULAR HEMOGLOBIN 28.3 pg (27.0-33.0); MEAN CORPUSCULAR VOLUME 91.2 fL (79-99); MONOCYTES % (AUTO) 6.8 % (3.0-13.0); NEUTROPHILS % (AUTO) 81.6 % (40.0-77.0); PLATELET COUNT (AUTO) 143 K/uL (130-400); RED BLOOD CELL COUNT(AUTO) 2.72 MIL/uL (4.50-6.20); RED CELL DISTRIBUTION WIDTH 17.9 % (11.0-15.5); WHITE BLOOD COUNT (AUTO) 11.1 K/uL (4.8-10.8)
[2021-05-31 14:01] LABS: INR 1.32 (0.85-1.15)
[2021-05-31 14:06] LABS: ALBUMIN 1.7 g/dL (3.5-5.0); BILIRUBIN,TOTAL 0.8 mg/dL (0.2-1.0); CREATININE 2.7 mg/dL (0.5-1.5); TOTAL PROTEIN, SERUM 4.6 g/dL (6.0-8.3)
[2021-05-31 14:07] LABS: POTASSIUM 2.6 mmol/L (3.5-5.1)
[2021-05-31] MEDS ORDERED: POTASSIUM CHLORIDE 10MEQ/100ML 10 MEQ/100 ML ML IV ONE (15:00)
[2021-05-31] MEDS ORDERED: LIDOCAINE HCL-MPF 1% 2ML VIAL ONE (15:00)
[2021-05-31] MEDS ORDERED: BENZONATATE 100 MG CAPSULE PO PRN (18:00)
[2021-05-31] MEDS ORDERED: ACETAMINOPHEN 325 MG TAB PO PRN (18:00)
[2021-05-31] MEDS ORDERED: IPRATROPIUM/ALBUTEROL SULFATE 3 ML SOLUTION IH PRN (18:00)
[2021-05-31] MEDS ORDERED: POTASSIUM CHLORIDE 10MEQ/100ML 10 MEQ/100 ML ML IV SCH (18:00)
[2021-05-31] MEDS: MIDODRINE HCL 5 MG TABLET PO SCH ×2 (18:00→21:26)
[2021-05-31 18:56] LABS: HEMATOCRIT 23.8 % (42-54)
[2021-05-31 19:04] LABS: MAGNESIUM 1.3 mg/dL (1.80-2.40)
[2021-05-31 19:06] LABS: POTASSIUM 2.6 mmol/L (3.5-5.1)
[2021-05-31] MEDS ORDERED: SODIUM BICARBONATE 650 MG TAB ONE (20:00)
[2021-05-31 20:04] VITALS: BP 108/50
[2021-05-31] MEDS: XIIDRA EYE OU SCH (21:00)
[2021-05-31] MEDS ORDERED: MONTELUKAST SODIUM 10 MG TAB PO SCH (21:00)
[2021-05-31] MEDS ORDERED: POTASSIUM CHLORIDE 10% ELIXIR 20 MEQ/15 ML UDCUP ONE (21:24)
[2021-05-31] MEDS: SUCRALFATE 1 GM TABLET PO SCH (21:26)
[2021-05-31] MEDS: GUAIFENESIN 600 MG TABLET.ER PO SCH (21:26)
[2021-05-31] MEDS: MAGNESIUM 2GM PREMIX 50ML 50 ML IV SCH (21:26)
[2021-05-31] MEDS: SODIUM BICARBONATE 650 MG TAB PO SCH (21:26)
[2021-05-31] MEDS: PANTOPRAZOLE 40 MG/VIAL IVP SCH (21:27)
[2021-05-31] MEDS ORDERED: MAGNESIUM 2GM PREMIX 50ML 50 ML IV PRN (21:30)
[2021-05-31] MEDS ORDERED: POTASSIUM CHLORIDE 10% ELIXIR 20 MEQ/15 ML UDCUP PO ONE (22:00)
[2021-05-31] MEDS ORDERED: FLUT16H NASAL (23:15)
[2021-05-31] MEDS ORDERED: MIDO2.5T PO (23:15)
[2021-05-31] MEDS ORDERED: ONDA-104 PO (23:15)
[2021-05-31] MEDS ORDERED: SODI650T PO (23:15)
[2021-05-31] MEDS ORDERED: BENZ200C53 PO (23:15)
[2021-05-31] MEDS ORDERED: MEGE40TA8 PO (23:15)
[2021-05-31] MEDS ORDERED: PANT40TA54 PO (23:15)
[2021-05-31] MEDS ORDERED: TAMS-1 PO (23:15)
[2021-05-31] MEDS ORDERED: GUAI600T50 PO (23:16)
[2021-05-31 23:23] VITALS: BP 94/51
[2021-06-01 03:30] VITALS: BP 98/54
[2021-06-01 05:18] LABS: HEMATOCRIT 25.4 % (42-54); MEAN CORPUSCULAR HEMOGLOBIN 28.7 pg (27.0-33.0); MEAN CORPUSCULAR HGB CONC 31.5 g/dL (32.0-36.0); RED BLOOD CELL COUNT(AUTO) 2.79 MIL/uL (4.50-6.20); RED CELL DISTRIBUTION WIDTH 18.1 % (11.0-15.5)
[2021-06-01 05:27] LABS: CREATININE 2.7 mg/dL (0.5-1.5); MAGNESIUM 1.5 mg/dL (1.80-2.40); POTASSIUM 3.3 mmol/L (3.5-5.1)
[2021-06-01] MEDS: MAGNESIUM 2GM PREMIX 50ML 50 ML IV SCH (06:04)
[2021-06-01] MEDS: SUCRALFATE 1 GM TABLET PO SCH ×3 (06:04→16:05)
[2021-06-01] MEDS ORDERED: LEVOTHYROXINE 75 MCG TABLET PO SCH (06:30)
[2021-06-01 07:23] LABS: % IRON SATURATION 29.7 % (30-44)
[2021-06-01 08:46] VITALS: BP 102/48
[2021-06-01] MEDS ORDERED: FLUTICASONE PROPIONATE 50MCG/SPRAY 16 GM BOTTLE EN SCH (09:00)
[2021-06-01] MEDS ORDERED: MEGESTROL 400 MG/10 ML UDCUP PO SCH (09:00)
[2021-06-01] MEDS ORDERED: SIMVASTATIN 20 MG TABLET PO SCH (09:00)
[2021-06-01] MEDS: GUAIFENESIN 600 MG TABLET.ER PO SCH (09:00)
[2021-06-01] MEDS: XIIDRA EYE OU SCH (09:00)
[2021-06-01] MEDS: PANTOPRAZOLE 40 MG/VIAL IVP SCH (10:37)
[2021-06-01] MEDS: MIDODRINE HCL 5 MG TABLET PO SCH ×2 (10:38→13:38)
[2021-06-01] MEDS: SODIUM BICARBONATE 650 MG TAB PO SCH ×2 (10:38→13:38)
[2021-06-01] MEDS ORDERED: POLYETHYLENE GLYCOL 3350 17 GM POWD.PACK PO PRN (11:00)
[2021-06-01] MEDS: PRESERVISION MISC SCH ×2 (11:00→18:00)
[2021-06-01] MEDS ORDERED: Vitamin B Complex/Vit C/Folic Acid PO SCH (11:03)
[2021-06-01 11:55] VITALS: BP 105/54
[2021-06-01] MEDS ORDERED: FOLIC ACID 1 MG TABLET PO SCH (12:14)
[2021-06-01] MEDS ORDERED: IRON SUCROSE COMPLEX 500 MG in 0.9% NACL 250ML 250 ML IV SCH (13:00)
[2021-06-01] MEDS ORDERED: POTASSIUM CHLORIDE 10MEQ SR TAB PO SCH (13:00)
[2021-06-01] MEDS ORDERED: COMPOUND IV MISC 1 EACH IVSOLN MISC PRN (13:00)
[2021-06-01] MEDS ORDERED: EPOETIN ALFA-EPBX (NON-ESRD) 10,000 UNIT/ML VIAL SQ SCH (13:00)
[2021-06-01 13:06] LABS: RETICULOCYTE % (AUTO) 1.56 % (0.42-2.23)
[2021-06-01 13:17] LABS: CRP QUANTITATIVE 57.7 mg/L (0.00-9.0)
[2021-06-01 13:41] LABS: THYROID STIMULATING HORMONE 1.84 uIU/mL (0.36-3.74)
[2021-06-01] MEDS ORDERED: LACTULOSE 20 GM/30 ML UDCUP PO ONE (14:00)
[2021-06-01] MEDS ORDERED: TAMSULOSIN HCL 0.4 MG CAP.ER.24H PO SCH (14:00)
[2021-06-01] MEDS ORDERED: LEVO500T90 PO (14:23)
[2021-06-01 16:16] VITALS: BP 97/41
[2021-06-01 19:59] VITALS: BP 105/50
[2021-06-01] MEDS ORDERED: SODIUM HYPOCHLORITE 0.125% 473 ML SOLUTION TP SCH (21:00)
[2021-06-02] MEDS ORDERED: ASCORBIC ACID 500 MG TAB PO SCH (09:00)
[2021-06-02] MEDS ORDERED: CYANOCOBALAMIN (VITAMIN B-12) 1,000 MCG TABLET PO SCH (09:00)
== END 2021-06-01 20:30 | disposition home or self-care (01) ==
LOC: EDH 13:11 → EDHIP 17:32 → 4AH 18:45
PROVIDERS: ADMIT Internal Medicine; ATTEND Internal Medicine
DX: K52.9 Noninfective gastroenteritis and colitis, unspecified (principal); Z20.822 Contact with and (suspected) exposure to COVID-19; E87.6 Hypokalemia; E83.42 Hypomagnesemia; I13.2 Hypertensive heart and chronic kidney disease with heart failure and with stage 5 chronic kidney disease, or end stage renal disease; I50.9 Heart failure, unspecified; N18.6 End stage renal disease; E11.22 Type 2 diabetes mellitus with diabetic chronic kidney disease; L89.153 Pressure ulcer of sacral region, stage 3; E43 Unspecified severe protein-calorie malnutrition; D64.9 Anemia, unspecified; R53.81 Other malaise; E03.9 Hypothyroidism, unspecified; E78.5 Hyperlipidemia, unspecified; I25.10 Atherosclerotic heart disease of native coronary artery without angina pectoris; I27.20 Pulmonary hypertension, unspecified; I48.91 Unspecified atrial fibrillation; J44.9 Chronic obstructive pulmonary disease, unspecified; L89.154 Pressure ulcer of sacral region, stage 4; L89.93 Pressure ulcer of unspecified site, stage 3; N04.9 Nephrotic syndrome with unspecified morphologic changes; R62.7 Adult failure to thrive; T81.89XA Other complications of procedures, not elsewhere classified, initial encounter; Z79.899 Other long term (current) drug therapy; Z85.46 Personal history of malignant neoplasm of prostate; Z85.820 Personal history of malignant melanoma of skin; Z86.718 Personal history of other venous thrombosis and embolism; Z87.81 Personal history of (healed) traumatic fracture; Z89.611 Acquired absence of right leg above knee; Z90.79 Acquired absence of other genital organ(s); Z95.810 Presence of automatic (implantable) cardiac defibrillator; Z95.828 Presence of other vascular implants and grafts; Z74.01 Bed confinement status; Z96.641 Presence of right artificial hip joint; Z96.653 Presence of artificial knee joint, bilateral; Z99.2 Dependence on renal dialysis; Z98.890 Other specified postprocedural states
CPT/HCPCS: 36415 ×2; 80048; 80053; 82270; 82607; 82728; 82746; 82948 ×4; 83540; 83550; 83735 ×3; 84132; 84145; 84443; 84484; 85014; 85018; 85025; 85027; 85045; 85610; 85651; 86140; 86850; 86900; 86901; 92526; 92610; 93005; 94640 ×2; 96365; 96366; 96367; 96372; 96375; 96376 ×2; 99291; C9113 ×2; G0378 ×25; J1756; J3475 ×2; J3490; J7050; Q5106; U0003